=== PATIENT | male | born 1970 | race Caucasian/White ===

== ENCOUNTER 2020-11-26 17:04 | Inpatient (IN) | payer OTHER, SELFPAY ==
--- NOTE | ~2020-11-26 | MR_ITS ---
MR LUMBAR SPINE WITHOUT AND WITH CONTRAST CLINICAL INFORMATION: Chronic pain. COMPARISON: None TECHNIQUE: MRI of the lumbar spine was obtained using routine sequences with and without contrast. Intravenous contrast: Gadavist 10 mL FINDINGS: Postoperative changes following laminectomy and posterior instrumented lumbar interbody fusion at the L4-S1 levels. Straightening of the lumbar lordosis. Vertebral body heights are maintained. There is mild disc volume loss and disc desiccation at the L2-L3 and L3-L4 levels. There is no bone marrow edema. There are no acute fractures. There is no pathologic intrathecal enhancement. No pathologic enhancement along the cauda equina nerve roots. Spinal electrode leads partially imaged. There are parapelvic cysts bilaterally. L1-L2: Disc contour is normal. Mild bilateral facet arthropathy. No central canal stenosis and no foraminal stenosis. L2-L3: There is a diffuse annular disc bulge the superimposed right paracentral disc protrusion that contacts and likely results in mild mass effect on the traversing L3 nerve roots within the subarticular zones bilaterally. There is also a far right lateral disc protrusion that contacts the extraforaminal right L2 nerve root. L3-L4: At the junctional level, there is a diffuse annular disc bulge and there is bilateral facet arthropathy and ligamentum flavum thickening as well as prominent dorsal epidural fat. Findings in concert result in moderate to severe central canal stenosis, severe left subarticular zone stenosis with compression of the traversing left L4 nerve root, and moderate to severe bilateral foraminal stenosis with mass effect on the exiting L3 nerve roots bilaterally. L4-L5: Postoperative changes following laminectomy and posterior instrumented lumbar interbody fusion. Osteophytic ridging results in right subarticular zone stenosis with mass effect on the traversing right L5 nerve root. There is enhancing granulation/scar tissue inseparable from the traversing right L5 nerve root as well. Mild narrowing of the central canal and mild bilateral foraminal encroachment at this level. L5-S1: Postoperative changes following laminectomy and posterior instrumented lumbar interbody fusion. Right left lateral osteophytic ridging resulting in moderate to severe bilateral foraminal stenosis with mass effect on the exiting L5 nerve roots bilaterally. No significant granulation/scar tissue at this level. MR/MR lumbar spine wo/w con IMPRESSION: - At L2-L3, a shallow right paracentral disc protrusion contacts and likely results in mild mass effect on the traversing L3 nerve roots within the subarticular zones bilaterally. There is also a far right lateral disc protrusion that contacts the extraforaminal right L2 nerve root. - At the L3-L4 junctional level, multifactorial degenerative changes result in moderate to severe central canal stenosis, severe left subarticular zone stenosis with compression of the traversing left L4 nerve root, and moderate to severe bilateral foraminal stenosis with mass effect on the exiting L3 nerve roots bilaterally. - At L4-L5, there are postoperative changes following laminectomy and posterior instrumented lumbar interbody fusion. Osteophytic ridging results in right subarticular zone stenosis with mass effect on the traversing right L5 nerve root. There is enhancing granulation/scar tissue inseparable from the traversing right L5 nerve root as well. - At L5-S1, there are postoperative changes following and posterior instrumented lumbar interbody fusion. Osteophytic ridging and facet arthropathy result in moderate to severe bilateral foraminal stenosis at L5-S1 with mass effect on the exiting L5 nerve roots bilaterally.
[2020-11-26 17:12] VITALS: BP 160/110; PULSE 127; RESP 18; TEMP 36.8; O2SAT 95; BMI 27.1
--- NOTE | 2020-11-26 17:42 | ED_ITS ---
HPI - Psych General Chief Complaint: Psychiatric Symptoms Stated Complaint: SI Time Seen by Provider: 11/26/20 17:41 Source: patient Limitations: no limitations History of Present Illness HPI Narrative: 50 y/o male with history of bipolar disorder, depression, HTN, suicide attempts in the past, chronic back pain s/p 5 back surgeries at [facility] who presents to the ED with suicidal ideation for the last 2 weeks. He lives at home with his who works as a nurse at [employer]. He reports compliance with all of his medications as well as his appointments with his Psychiatrist and Therapist at [facility] in [place]. He states about 2 weeks ago he started feeling off. He was getting headaches and feeling like the world was spinning out of control around him. He has been crying uncontrollably when this happens and thinking that he no longer wants to live. He does not have a specific plan. He states his cousin who he was very close with committed suicide 1 year ago with a gunshot to the head and he has been having a hard time coping. He admits to difficulty being at home on disability and looking at the same 4 serrano all day everyday. The pandemic has worsened his depression significantly. He denies illicit drug use (aside from occasional medical marijuana). Only occasional ETOH. He met with his therapist today who recommended to come in for evaluation given his symptoms. His 2 suicide attempts were several years ago, overdose of his medications and he required ICU level of care. MD complaint: suicidal ideation and feels depressed Onset (ago): week(s) (2) Duration: constant History of same: Yes Relieving factors: none Exacerbating factors: none Associated psychiatric symptoms: depression and suicidal ideation Associated symptoms: headache and insomnia Treatments prior to arrival: none If self harm: admits thoughts of self harm Related Data Home Medications Medication Instructions Recorded Confirmed amlodipine 1 tab PO DAILY 11/26/20 11/26/20 diclofenac sodium 1 tab PO BID 11/26/20 11/26/20 divalproex 3 tab PO DAILY 11/26/20 11/26/20 gabapentin 1 tab PO TID 11/26/20 11/26/20 lorazepam 1 tab PO BID 11/26/20 11/26/20 quetiapine 2 tab PO BEDTIME 11/26/20 11/26/20 Allergies Allergy/AdvReac Type Severity Reaction Status Date / Time meperidine [From DEMEROL] Allergy Mild UNKNOWN Verified 11/26/20 17:12 Review of Systems Review of Systems: Constitutional: No Fever, No Chills ENT/Mouth: No sore throat, No Rhinorrhea, No Swallowing Difficulty Cardiovascular: No Chest Pain, No SOB Respiratory: No Cough, No Sputum Gastrointestinal: No Nausea, No Vomiting, No Diarrhea, No abdominal Pain Genitourinary: No Dysuria, No Urinary Frequency, No Hematuria Musculoskeletal: + joint pain, + Myalgias Skin: No Skin Lesions, No rash Neuro: No Weakness, No Numbness, No Dizziness, + Headache Psych: + Anxiety/Panic, + Depression, +SI, No AH/VH Heme/Lymph: No Bruising, No Lymphadenopathy Endocrine: No Polyuria, No Polydipsia PMFSH Past Medical History Attestation statement: The following information was validated with the patient. Social History Social History Advance Directives: No Advance Directives Information Provided: Yes Physical Exam Vital Signs: Vital Signs: Last Vital Signs Temp 97.8 F 11/26/20 20:41 Pulse 92 11/26/20 20:41 Resp 18 11/26/20 17:12 BP 155/106 H 11/26/20 20:41 Pulse Ox 95 11/26/20 20:41 Body Mass Index 27.1 Const: General: cooperative, healthy appearing, comfortable and no acute distress Orientation/consciousness: patient oriented x3 HENMT: Head: Yes normal to inspection Ears: hearing grossly normal bilaterally General nose exam: Normal external nose present Face and sinus: Yes normal facial exam Mouth: lip normal Teeth and gingiva: dentition normal Eyes: General: appearance normal, both eyes and all related structures Neck: Neck: Yes normal visual inspection Chest: Chest palpation & inspection: normal inspection of the chest Resp: Effort & Inspection: normal respiratory effort and able to speak in complete sentences Auscultation: clear to auscultation bilaterally Cardio: Rate: tachycardic Rhythm: regular rhythm Heart sounds: S1 normal heart sound present and S2 normal heart sound present GI: Inspection: Yes normal to inspection Palpation (GI): Soft to palpation and nontender Auscultation: normal bowel sounds Skin: General skin exam: no rashes or lesions noted Neuro: General: patient oriented x3 Cognition (Neuro): normal cognition Extrem: General: Yes normal to inspection Psych: Appearance: grossly normal and well kempt Mental Status: mental status grossly normal Speech and movement: Normal speech and movement present Affect: Sad affect present Attitude: cooperative Thought process: Normal thought process present Thought content: Suicidality present Insight: Good insight present (Psych) Judgement: Good judgement present (Psych) Course Course Course Narrative: 50 y/o male with history of bipolar depression and suicide attempts in the past presenting with SI, worsening over 2 weeks. He feels as though his medications are no longer working for him. He is tahcycardic and hypertensive on arrival. He admits to be anxious and nervous. He denies substance abuse or any withdrawal symptoms. Will check basic lab, Utox, ETOH level and have CARE team see him. EKG ordered as well given tachycardia. Reevaluation(s) Reevaluation #1: Labs are unremarkable. HR improved to the 90s. CARE team to see. Physician observation started at 8:40pm. Patient placed in physician observation because patient is awaiting [facility] evaluation for the possible need of inpatient psych admission. At the time observation was started patient's vital signs were stable. Patient is alert and oriented. Neuro exam is non-focal. CV: RRR and lungs are clear. Will continue to monitor. [facility] - Psych Medical Records Attestation: I reviewed the patient's medical records. Lab Data Attestation: I reviewed the patient's lab results. Result diagrams: 11/26/20 18:53 11/26/20 18:53 Labs: Lab Results 11/26/20 11/26/20 11/26/20 Range/Units 18:30 18:53 18:53 WBC 6.5 (4.8-10.8) X10*3/uL RBC 5.97 H (4.60-5.80) X10*6/uL Hgb 17.4 (14.0-18.0) g/dl Hct 50.7 (42-52) % MCV 84.9 (80-98) fL MCH 29.1 (27.0-33.0) pg MCHC 34.3 (31.0-36.0) g/dl RDW 13.3 (11.0-16.0) % Plt Count 274 (160-400) X10*3/uL MPV 9.3 L (9.4-12.4) fL Immature Gran % (Auto) 0.2 (0.0-0.4) % Neut % (Auto) 72.2 (45-73) % Lymph % (Auto) 18.4 L (20-40) % Nicholas % (Auto) 8.0 (2-11) % Eos % (Auto) 0.6 (0-4) % Baso % (Auto) 0.6 (0-2) % Lymph # (Auto) 1.2 (1.2-4.9) X10*3/uL Nicholas # (Auto) 0.5 (0.1-1.2) X10*3/uL Eos # (Auto) 0.0 (0.0-0.4) X10*3/uL Baso # (Auto) 0.0 (0.0-0.2) X10*3/uL Abs Immat Gran (auto) 0.01 (0.00-0.03) X10*3/uL Absolute Neuts (auto) 4.7 (2.0-8.3) X10*3/uL Absolute Nucleated RBC 0.000 (0.0-0.012) X10*3/uL Nucleated RBC % (auto) 0.0 (0.0-0.2) /100WBC Sodium 138 (135-145) mmol/L Potassium 4.0 (3.3-5.1) mmol/L Chloride 102 (96-108) mmol/L Carbon Dioxide 25 (22-29) mmol/L Anion Gap 15 (12-20) BUN 23 H (9-16) mg/dL Creatinine 0.95 (0.5-1.4) mg/dL Estim Creat Clear Calc 103.2 Estimated GFR > 60 Random Glucose 127 H (60-115) mg/dL Calcium 9.8 (8.4-10.2) mg/dL Magnesium 2.1 (1.6-2.6) mg/dL Total Bilirubin 0.7 (0.0-1.0) mg/dL Direct Bilirubin 0.2 (0.0-0.5) mg/dL AST 22 (5-37) U/L ALT 32 (0-40) U/L Alkaline Phosphatase 73 (39-117) U/L Total Protein 7.6 (6.5-8.0) g/dL Albumin 4.7 (3.5-5.0) g/dL Urine Color Urine Appearance Urine pH (5.0-8.0) Ur Specific [place] (1.005-1.025) Urine Protein (NEG-TRACE) MG/DL Urine Glucose (UA) (NEG) MG/DL Urine Ketones (NEG) MG/DL Urine Blood (NEG) Urine Nitrite (NEG) Ur Leukocyte Esterase (NEG) Urine RBC (0) /HPF Urine WBC (0-4) /HPF Ur Squamous Epith Cells /LPF Amorphous Sediment /LPF Urine Bacteria /LPF Urine Mucus /LPF Urine Opiates Screen Not Detected (Not Detect) Ur Barbiturates Screen Not Detected (Not Detect) Valproic Acid 68.1 (50.0-100.0) mcg/mL Ur Phencyclidine Scrn Not Detected (Not Detect) Ur Amphetamines Screen Not Detected (Not Detect) U Benzodiazepines Scrn Not Detected (Not Detect) Urine Cocaine Screen Not Detected (Not Detect) U Marijuana (THC) Screen POSITIVE H (Not Detect) Ethyl Alcohol mg/dL COVID-19 (LILLIAN) (Negative) COVID-19 Clin Com 11/26/20 11/26/20 11/26/20 Range/Units 18:53 18:53 19:48 WBC (4.8-10.8) X10*3/uL RBC (4.60-5.80) X10*6/uL Hgb (14.0-18.0) g/dl Hct (42-52) % MCV (80-98) fL MCH (27.0-33.0) pg MCHC (31.0-36.0) g/dl RDW (11.0-16.0) % Plt Count (160-400) X10*3/uL MPV (9.4-12.4) fL Immature Gran % (Auto) (0.0-0.4) % Neut % (Auto) (45-73) % Lymph % (Auto) (20-40) % Nicholas % (Auto) (2-11) % Eos % (Auto) (0-4) % Baso % (Auto) (0-2) % Lymph # (Auto) (1.2-4.9) X10*3/uL Nicholas # (Auto) (0.1-1.2) X10*3/uL Eos # (Auto) (0.0-0.4) X10*3/uL Baso # (Auto) (0.0-0.2) X10*3/uL Abs Immat Gran (auto) (0.00-0.03) X10*3/uL Absolute Neuts (auto) (2.0-8.3) X10*3/uL Absolute Nucleated RBC (0.0-0.012) X10*3/uL Nucleated RBC % (auto) (0.0-0.2) /100WBC Sodium (135-145) mmol/L Potassium (3.3-5.1) mmol/L Chloride (96-108) mmol/L Carbon Dioxide (22-29) mmol/L Anion Gap (12-20) BUN (9-16) mg/dL Creatinine (0.5-1.4) mg/dL Estim Creat Clear Calc Estimated GFR Random Glucose (60-115) mg/dL Calcium (8.4-10.2) mg/dL Magnesium (1.6-2.6) mg/dL Total Bilirubin (0.0-1.0) mg/dL Direct Bilirubin (0.0-0.5) mg/dL AST (5-37) U/L ALT (0-40) U/L Alkaline Phosphatase (39-117) U/L Total Protein (6.5-8.0) g/dL Albumin (3.5-5.0) g/dL Urine Color YELLOW Urine Appearance CLEAR Urine pH 6.0 (5.0-8.0) Ur Specific [place] >= 1.030 H (1.005-1.025) Urine Protein 2+ H (NEG-TRACE) MG/DL Urine Glucose (UA) NEG (NEG) MG/DL Urine Ketones 40 (NEG) MG/DL Urine Blood 2+ H (NEG) Urine Nitrite NEG (NEG) Ur Leukocyte Esterase NEG (NEG) Urine RBC 10-14 H (0) /HPF Urine WBC 0 (0-4) /HPF Ur Squamous Epith Cells TRACE /LPF Amorphous Sediment TRACE /LPF Urine Bacteria TRACE /LPF Urine Mucus 4+ /LPF Urine Opiates Screen (Not Detect) Ur Barbiturates Screen (Not Detect) Valproic Acid (50.0-100.0) mcg/mL Ur Phencyclidine Scrn (Not Detect) Ur Amphetamines Screen (Not Detect) U Benzodiazepines Scrn (Not Detect) Urine Cocaine Screen (Not Detect) U Marijuana (THC) Screen (Not Detect) Ethyl Alcohol < 10 mg/dL COVID-19 (LILLIAN) Negative (Negative) COVID-19 Clin Com See Note ECG Data Attestation: I personally reviewed and interpreted this ECG as follows: ECG interpretation date: 11/26/20 ECG interpretation time: 21:19 Prior ECG tracings: available for review Interpretation: normal sinus rhythm, HR 82 bpm, normal TX interval, no ST segment elevations or depressions. Discharge Plan Discharge Clinical Impression: Suicidal ideation Patient Disposition: Admitted As Inpatient Prescriptions: No Action quetiapine 100 mg tablet 2 tab PO BEDTIME RF: 0 gabapentin 800 mg tablet 1 tab PO TID RF: 0 amlodipine 10 mg tablet 1 tab PO DAILY RF: 0 divalproex 500 mg tablet extended release 24 hr 3 tab PO DAILY RF: 0 diclofenac sodium 75 mg tablet,delayed release (DR/EC) 1 tab PO BID RF: 0 lorazepam 1 mg tablet 1 tab PO BID RF: 0
--- NOTE | 2020-11-26 18:33 | ECG_ITS ---
Test Reason : MED CLEARANCE Blood Pressure : / mmHG Vent. Rate : 082 BPM Atrial Rate : 082 BPM P-R Int : 146 ms QRS Dur : 104 ms QT Int : 374 ms P-R-T Axes : 059 013 041 degrees QTc Int : 436 ms Normal sinus rhythm Normal ECG When compared with ECG of 04-JAN-2020 21:46, No significant change was found Referred By: Alycia Boyd Electronically Signed By:BALDEMAR MELO MD
--- NOTE | 2020-11-26 18:54 | HE.PHANOTE ---
Pharmacy has completed the medication reconciliation and there were no significant medication issues requiring provider attention. Maria T Camara PharmD
[2020-11-26 19:01] LABS: MANUAL DIFF FLAG NO
[2020-11-26 19:09] LABS: Basophils Percent Auto 0.6 % (0-2); Eosinophils Percent Auto 0.6 % (0-4); Hematocrit 50.7 % (42-52); Hemoglobin 17.4 g/dl (14.0-18.0); Imm Gran Abs Auto 0.01 X10*3/uL (0.00-0.03); Imm Gran Pct Auto 0.2 % (0.0-0.4); Lymphocytes Absolute Auto 1.2 X10*3/uL (1.2-4.9); Lymphocytes Percent Auto 18.4 % (20-40); Mean Corpuscular HGB Conc 34.3 g/dl (31.0-36.0); Mean Corpuscular Hemoglobin 29.1 pg (27.0-33.0); Mean Corpuscular Volume 84.9 fL (80-98); Mean Platelet Volume 9.3 fL (9.4-12.4); Monocytes Absolute Auto 0.5 X10*3/uL (0.1-1.2); Neutrophils Absolute Auto 4.7 X10*3/uL (2.0-8.3); Neutrophils Percent Auto 72.2 % (45-73); Platelet Count 274 X10*3/uL (160-400); Red Blood Count 5.97 X10*6/uL (4.60-5.80); Red Cell Distribution Width 13.3 % (11.0-16.0); White Blood Count 6.5 X10*3/uL (4.8-10.8)
[2020-11-26 19:24] LABS: Ethanol < 10 mg/dL
[2020-11-26 19:28] LABS: Alanine Aminotransferase 32 U/L (0-40); Albumin Level 4.7 g/dL (3.5-5.0); Alkaline Phosphatase 73 U/L (39-117); Anion Gap 15 (12-20); Aspartate Amino Transferase 22 U/L (5-37); Bilirubin Direct 0.2 mg/dL (0.0-0.5); Bilirubin Total 0.7 mg/dL (0.0-1.0); Blood Urea Nitrogen 23 mg/dL (9-16); Calcium 9.8 mg/dL (8.4-10.2); Carbon Dioxide 25 mmol/L (22-29); Chloride 102 mmol/L (96-108); Creatinine Clr Calc Pharmacy 103.2; Estimated Glomerular Filt Rate > 60; Glucose Random 127 mg/dL (60-115); Magnesium 2.1 mg/dL (1.6-2.6); Sodium 138 mmol/L (135-145); Total Protein 7.6 g/dL (6.5-8.0)
[2020-11-26 19:29] LABS: Amphetamine Screen Urine Not Detected (Not Detect); Barbiturates, Urine Not Detected (Not Detect); Benzodiazepines Screen Urine Not Detected (Not Detect); Cannabinoid Screen Urine POSITIVE (Not Detect); Cocaine Screen Urine Not Detected (Not Detect); Opiate Screen Urine Not Detected (Not Detect); Phencyclidine Screen Urine Not Detected (Not Detect)
[2020-11-26 19:36] LABS: Glucose Urine UA NEG (NEG); Leukocyte Esterase Urine NEG (NEG); Nitrite Urine NEG (NEG); Specific Gravity - Urine >= 1.030 (1.005-1.025); Urine Blood 2+ (NEG); Urine Ketones 40 MG/DL (NEG); Urine Protein 2+ MG/DL (NEG-TRACE)
[2020-11-26 19:37] LABS: Appearance Urine CLEAR; Color Urine YELLOW
[2020-11-26 19:47] LABS: Amorphous Sediment Urine TRACE /LPF; Bacteria Urine TRACE /LPF; Mucus Urine 4+ /LPF; Squamous Epithelial Cell Urine TRACE /LPF; WBC Urine 0 /HPF (0-4)
[2020-11-26 20:08] LABS: COVID-19 Test Negative (Negative); IDNOW Serial# 08D9AD1C
[2020-11-26 20:41] VITALS: BP 155/106; PULSE 92; TEMP 36.6; O2SAT 95
[2020-11-26 21:13] LABS: Valproate 68.1 mcg/mL (50.0-100.0)
[2020-11-26] MEDS: Diclofenac Sodium Delayed Rel 75 MG TABLET.DR PO (21:37)
[2020-11-26] MEDS: Gabapentin 400 MG CAPSULE 800 MG PO (21:38)
[2020-11-26] MEDS: LORazepam 1 MG TABLET PO (23:19)
[2020-11-26] MEDS: QUEtiapine Fumarate 200 MG TABLET PO (23:20)
--- NOTE | 2020-11-26 23:24 | PC.NURSE ---
Patient compliant with night time meds, calm and quiet, behavior pleasant, signed CV, RN to RN with M3 completed, patient admitted to M3, will continue to monitor.
[2020-11-26 23:40] VITALS: BP 150/104; PULSE 75; RESP 18; TEMP 36.2; O2SAT 97
--- NOTE | 2020-11-27 00:38 | MHC.CARE ---
Pt evaluated by CARE team. Consulted with RAFAEL Boyd and psyhiatrist Dr. Nicholson re: plan of care. Disposition is for inpt psych. Admitted on CV legal status. Auth form faxed with [employer] to [facility].
--- NOTE | 2020-11-27 02:24 | PC.ADMIT ---
Abhinav arrived on M# from the [facility] ed at 2325. Patient signed a CV. Patient covid negative, Abhinav reports chronic lower back pain from an accident at work in 2019. Patient reports the pain is chronic and never goes away. patient having trouble adjusting to the pain, no longer working, and feeling useless. Patient reports elevated anxiety and depression. patient reports taking Depakote for years and just over the past 2 weeks he has noticed his mood sliding up and down. Patient reports periods of sadness and crying and then will suddenly stop. Patient currently reports no SI/HI but is worried about the future. Patient contracts for safety on the unit. Patient was pleasant and cooperative with nursing process.
[2020-11-27 06:00] VITALS: BP 116/72; PULSE 96; RESP 18; TEMP 36.9; O2SAT 100
[2020-11-27 09:11] VITALS: BP 116/72; PULSE 100
[2020-11-27] MEDS: Gabapentin 400 MG CAPSULE 800 MG PO (09:11)
[2020-11-27] MEDS: amLODIPine Besylate 10 MG TABLET PO (09:11)
[2020-11-27] MEDS: Divalproex Sodium ER 500 MG TAB.ER.24H 1500 MG PO (09:11)
[2020-11-27] MEDS: LORazepam 1 MG TABLET PO ×2 (09:12→21:19)
[2020-11-27] MEDS: Diclofenac Sodium Delayed Rel 75 MG TABLET.DR PO ×2 (09:12→21:19)
[2020-11-27] MEDS: Divalproex Sodium ER 500 MG TAB.ER.24H PO (14:09)
--- NOTE | 2020-11-27 14:26 | P.HPPS_ITS ---
HPI Chief Complaint: Mood lability and SI Sources of Information: patient interviewed, chart reviewed and crisis/core team assessment reviewed HPI Subjective Notes: Conditional Voluntary Narrative: pt with several work-related injuries to the back with multiple fail ed surgical fixes and associated chronic pain, plus bipolar I disorder, presents with unstable mood, dysphoria, and SI. he has been on disability since last year for his back injuries and stable on his current medications regimen for the past decade or more. he has recently begun to experience rapid mood swings, bouts of crying, insomnia, somatic disturbances, and negative mood states. he has been feeling off for several months but the past two weeks have been severe. he has a h/o suicide attempts and decided to seek help before it got to that point. Past Psychiatric History: h/o bipolar disorder. h/o 3 prior psych hosps. h/o 2 suicide attempt both by overdose (one lithium) more than 10 years ago. has been in outpt [place] since then. Medical Evaluation Reviewed: Yes PMF Narrative: HTN lower back injury s/p numerous surgeries without pain relief Family History: cousin completed suicide by gunshot 1.5 yrs ago. bipolar di sorder. mother has parkinson's Dz. Social History: disabled from back pain due to work injury. just last year, had a prior marriage. has a son in his late teens and a daughter in her early 20's from prior marriage. Substance History: utox cannabis POS. uses for pain. edibles. Trauma History: none noted Diagnostics Vital Signs (24Hr): Vital Signs - 24 hr 11/26/20 17:12 11/26/20 20:41 11/26/20 23:40 Temperature 98.2 F 97.8 F 97.2 F Pulse Rate 127 H 92 75 Respiratory Rate 18 18 Blood Pressure 160/110 H 155/106 H 150/104 H Pulse Oximetry 95 95 97 11/27/20 06:00 11/27/20 09:11 Temperature 98.5 F Pulse Rate 96 100 Respiratory Rate 18 Blood Pressure 116/72 116/72 Pulse Oximetry 100 Body Mass Index 27.1 Labs Results: 11/26/20 18:53 11/26/20 18:53 Labs: Laboratory Results - last 48 hr 11/26/20 11/26/20 11/26/20 18:30 18:53 18:53 WBC 6.5 RBC 5.97 H Hgb 17.4 Hct 50.7 MCV 84.9 MCH 29.1 MCHC 34.3 RDW 13.3 Plt Count 274 MPV 9.3 L Immature Gran % (Auto) 0.2 Neut % (Auto) 72.2 Lymph % (Auto) 18.4 L [place] % (Auto) 8.0 Eos % (Auto) 0.6 Baso % (Auto) 0.6 Lymph # (Auto) 1.2 [place] # (Auto) 0.5 Eos # (Auto) 0.0 Baso # (Auto) 0.0 Abs Immat Gran (auto) 0.01 Absolute Neuts (auto) 4.7 Absolute Nucleated RBC 0.000 Nucleated RBC % (auto) 0.0 Sodium 138 Potassium 4.0 Chloride 102 Carbon Dioxide 25 Anion Gap 15 BUN 23 H Creatinine 0.95 Estim Creat Clear Calc 103.2 Estimated GFR > 60 Random Glucose 127 H Calcium 9.8 Magnesium 2.1 Total Bilirubin 0.7 Direct Bilirubin 0.2 AST 22 ALT 32 Alkaline Phosphatase 73 Total Protein 7.6 Albumin 4.7 Urine Color Urine Appearance Urine pH Ur Specific [place] Urine Protein Urine Glucose (UA) Urine Ketones Urine Blood Urine Nitrite Ur Leukocyte Esterase Urine RBC Urine WBC Ur Squamous Epith Cells Amorphous Sediment Urine Bacteria Urine Mucus Urine Opiates Screen Not Detected Ur Barbiturates Screen Not Detected Valproic Acid 68.1 Ur Phencyclidine Scrn Not Detected Ur Amphetamines Screen Not Detected U Benzodiazepines Scrn Not Detected Urine Cocaine Screen Not Detected U Marijuana (THC) Screen POSITIVE H Ethyl Alcohol COVID-19 ([facility]ILLIAN) COVID-19 Clin Com 11/26/20 11/26/20 11/26/20 18:53 18:53 19:48 WBC RBC Hgb Hct MCV MCH MCHC RDW Plt Count MPV Immature Gran % (Auto) Neut % (Auto) Lymph % (Auto) [place] % (Auto) Eos % (Auto) Baso % (Auto) Lymph # (Auto) [place] # (Auto) Eos # (Auto) Baso # (Auto) Abs Immat Gran (auto) Absolute Neuts (auto) Absolute Nucleated RBC Nucleated RBC % (auto) Sodium Potassium Chloride Carbon Dioxide Anion Gap BUN Creatinine Estim Creat Clear Calc Estimated GFR Random Glucose Calcium Magnesium Total Bilirubin Direct Bilirubin AST ALT Alkaline Phosphatase Total Protein Albumin Urine Color YELLOW Urine Appearance CLEAR Urine pH 6.0 Ur Specific [place] >= 1.030 H Urine Protein 2+ H Urine Glucose (UA) NEG Urine Ketones 40 Urine Blood 2+ H Urine Nitrite NEG Ur Leukocyte Esterase NEG Urine RBC 10-14 H Urine WBC 0 Ur Squamous Epith Cells TRACE Amorphous Sediment TRACE Urine Bacteria TRACE Urine Mucus 4+ Urine Opiates Screen Ur Barbiturates Screen Valproic Acid Ur Phencyclidine Scrn Ur Amphetamines Screen U Benzodiazepines Scrn Urine Cocaine Screen U Marijuana (THC) Screen Ethyl Alcohol < 10 COVID-19 ([facility]ILLIAN) Negative COVID-19 Clin Com See Note Meds/Allergies Meds Home Medications Acetaminophen (Acetaminophen 325 Mg Tablet) 650 mg PO Q6H PRN PRN Reason: Headache/Pain Mild Scale (1-3) Al Hydroxide/Mg Hydroxide (Magnesium Hydrox/Alum Hydrox 30 Ml Oral.Susp) 30 ml PO Q6H PRN PRN Reason: Heartburn/Nausea Amlodipine Besylate (Amlodipine Besylate 10 Mg Tablet) 10 mg PO DAILY [facility]; Protocol Last Admin: 11/27/20 09:11 Dose: 10 mg Documented by: Diclofenac Sodium (Diclofenac Sodium Delayed Rel 75 Mg Tablet.) 75 mg PO BID [facility] Last Admin: 11/27/20 09:12 Dose: 75 mg Documented by: Divalproex Sodium (Divalproex Sodium Er 500 Mg Tab.Er.24h) 2,000 mg PO DAILY [facility] Gabapentin (Gabapentin 600 Mg Tablet) 600 mg PO TID [facility] Last Admin: 11/27/20 15:55 Dose: 600 mg Documented by: Gabapentin (Gabapentin 400 Mg Capsule) 400 mg PO TID [facility] Last Admin: 11/27/20 15:55 Dose: 400 mg Documented by: Hydroxyzine HCl (Hydroxyzine Hcl 25 Mg Tablet) 25 mg PO QID PRN PRN Reason: Anxiety Lorazepam (Lorazepam 1 Mg Tablet) 1 mg PO BID [facility] Last Admin: 11/27/20 09:12 Dose: 1 mg Documented by: Magnesium Hydroxide (Milk Of Magnesia 30 Ml Oral.Susp) 30 ml PO DAILY PRN PRN Reason: Constipation Quetiapine Fumarate (Quetiapine Fumarate 200 Mg Tablet) 200 mg PO BEDTIME [facility] Last Admin: 11/26/20 23:20 Dose: 200 mg Documented by: Trazodone HCl (Trazodone Hcl 50 Mg Tablet) 50 mg PO BEDTIME PRN PRN Reason: Insomnia Allergies Allergies Allergy/AdvReac Type Severity Reaction Status Date / Time meperidine [From DEMEROL] Allergy Mild UNKNOWN Verified 11/26/20 17:12 Mental Status Exam Mental Status Exam Narrative: appropriately dressed and groomed. sleeve tattoos. no PMA/PMR. cooperative. speech nml in rate, amount, loudness, tone, latency. thoughts linear and logical without evidence of delusions or paranoia. affect constricted, normo-intense, non-labile. mood .good. denies SI since yesterday. denies HI/AVH. Assessment & Plan Assessment & Plan (1) Bipolar 1 disorder, mixed, mild: Status: Acute Code(s): F31.61 - Bipolar disorder, current episode mixed, mild Assessment and Plan: increase VPA from 1500 mg daily to 2000 mg daily to address mood lability. increase gabapentin from 800 TID to 1000 TID to address neuropathic pain. T/C adding an antidepressant such as wellbutrin; SNRI such as effexor or cymbalta for depression and chronic pain; lithium for mood stabilization and antidepressant properties (of note, lithium is one of the medications pt overdosed on about 20 years ago). Reason for continued inpatient stay Substantial Risk for: harm to self
[2020-11-27] MEDS: Gabapentin 400 MG CAPSULE PO ×2 (15:55→21:19)
[2020-11-27] MEDS: Gabapentin 600 MG TABLET PO ×2 (15:55→21:19)
[2020-11-27] MEDS: Nicotine Polacrilex 2 MG GUM BUCCAL (17:33)
[2020-11-27 18:00] VITALS: BP 138/78; PULSE 93; RESP 18; TEMP 36.9; O2SAT 96
[2020-11-27] MEDS: QUEtiapine Fumarate 200 MG TABLET PO (21:19)
[2020-11-28 06:00] VITALS: BP 113/76; PULSE 79; RESP 16; TEMP 36.9; O2SAT 96
[2020-11-28] MEDS: Gabapentin 400 MG CAPSULE PO ×3 (08:46→20:58)
[2020-11-28] MEDS: Diclofenac Sodium Delayed Rel 75 MG TABLET.DR PO ×2 (08:46→20:56)
[2020-11-28] MEDS: Gabapentin 600 MG TABLET PO ×3 (08:46→20:58)
[2020-11-28 08:47] VITALS: BP 113/76; PULSE 79
[2020-11-28] MEDS: amLODIPine Besylate 10 MG TABLET PO (08:47)
[2020-11-28] MEDS: LORazepam 1 MG TABLET PO ×2 (08:47→20:55)
[2020-11-28] MEDS: Divalproex Sodium ER 500 MG TAB.ER.24H 2000 MG PO (09:33)
[2020-11-28] MEDS: Nicotine Polacrilex 2 MG GUM BUCCAL ×4 (09:37→19:22)
[2020-11-28] MEDS: Lidocaine 4 % Patch ADH..PATCH 1 PATCH TRANSDERMA (16:16)
--- NOTE | 2020-11-28 17:27 | P.PNPSI_ITS ---
Subjective Subjective Date of Service: 11/28/20 Reason For Visit: Mood lability and SI Interim History: pt found resting in bed, easily rousable. reports no substantial change in Sx from yesterday. a few bouts of nearly crying, but nothing out of control and no somatic symptoms associated with severe mood disturbance. agreeable to continue with current medications. reports his will be bringing in his TENS unit. amenable to considering tegretol over VPA for neuropathic pain treatment properties in addition to mood stabilization. also T/C TCA or SNRI. informed pt MD will look into neuro or pain consult. also willing to try lidocaine patch to lower back. no other complaints or requests. Mental Status Exam Mental Status Exam Narrative: appropriately dressed and groomed. sleeve tattoos. no PMA/PMR. cooperative. speech nml in rate, amount, loudness, tone, latency. thoughts linear and logical without evidence of delusions or paranoia. affect constricted, normo-intense, non-labile. denies SI. no HI/AVH expressed. Diagnostics Vital Signs (24Hr): Vital Signs - 24 hr 11/27/20 18:00 11/28/20 06:00 11/28/20 08:47 Temperature 98.4 F 98.5 F Pulse Rate 93 79 79 Respiratory Rate 18 16 Blood Pressure 138/78 113/76 113/76 Pulse Oximetry 96 96 Body Mass Index 27.1 Labs Results: 11/26/20 18:53 11/26/20 18:53 Labs: Laboratory Results - last 48 hr 11/26/20 11/26/20 11/26/20 18:30 18:53 18:53 WBC 6.5 RBC 5.97 H Hgb 17.4 Hct 50.7 MCV 84.9 MCH 29.1 MCHC 34.3 RDW 13.3 Plt Count 274 MPV 9.3 L Immature Gran % (Auto) 0.2 Neut % (Auto) 72.2 Lymph % (Auto) 18.4 L [place] % (Auto) 8.0 Eos % (Auto) 0.6 Baso % (Auto) 0.6 Lymph # (Auto) 1.2 Posey # (Auto) 0.5 Eos # (Auto) 0.0 Baso # (Auto) 0.0 Abs Immat Gran (auto) 0.01 Absolute Neuts (auto) 4.7 Absolute Nucleated RBC 0.000 Nucleated RBC % (auto) 0.0 Sodium 138 Potassium 4.0 Chloride 102 Carbon Dioxide 25 Anion Gap 15 BUN 23 H Creatinine 0.95 Estim Creat Clear Calc 103.2 Estimated GFR > 60 Random Glucose 127 H Calcium 9.8 Magnesium 2.1 Total Bilirubin 0.7 Direct Bilirubin 0.2 AST 22 ALT 32 Alkaline Phosphatase 73 Total Protein 7.6 Albumin 4.7 Urine Color Urine Appearance Urine pH Ur Specific [place] Urine Protein Urine Glucose (UA) Urine Ketones Urine Blood Urine Nitrite Ur Leukocyte Esterase Urine RBC Urine WBC Ur Squamous Epith Cells Amorphous Sediment Urine Bacteria Urine Mucus Urine Opiates Screen Not Detected Ur Barbiturates Screen Not Detected Valproic Acid 68.1 Ur Phencyclidine Scrn Not Detected Ur Amphetamines Screen Not Detected U Benzodiazepines Scrn Not Detected Urine Cocaine Screen Not Detected U Marijuana (THC) Screen POSITIVE H Ethyl Alcohol COVID-19 ([facility]ILLIAN) COVID-[employer] 11/26/20 11/26/20 11/26/20 18:53 18:53 19:48 WBC RBC Hgb Hct MCV MCH MCHC RDW Plt Count MPV Immature Gran % (Auto) Neut % (Auto) Lymph % (Auto) Posey % (Auto) Eos % (Auto) Baso % (Auto) Lymph # (Auto) Posey # (Auto) Eos # (Auto) Baso # (Auto) Abs Immat Gran (auto) Absolute Neuts (auto) Absolute Nucleated RBC Nucleated RBC % (auto) Sodium Potassium Chloride Carbon Dioxide Anion Gap BUN Creatinine Estim Creat Clear Calc Estimated GFR Random Glucose Calcium Magnesium Total Bilirubin Direct Bilirubin AST ALT Alkaline Phosphatase Total Protein Albumin Urine Color YELLOW Urine Appearance CLEAR Urine pH 6.0 Ur Specific [place] >= 1.030 H Urine Protein 2+ H Urine Glucose (UA) NEG Urine Ketones 40 Urine Blood 2+ H Urine Nitrite NEG Ur Leukocyte Esterase NEG Urine RBC 10-14 H Urine WBC 0 Ur Squamous Epith Cells TRACE Amorphous Sediment TRACE Urine Bacteria TRACE Urine Mucus 4+ Urine Opiates Screen Ur Barbiturates Screen Valproic Acid Ur Phencyclidine Scrn Ur Amphetamines Screen U Benzodiazepines Scrn Urine Cocaine Screen U Marijuana (THC) Screen Ethyl Alcohol < 10 COVID-19 ([facility]ILLIAN) Negative COVID-19 [employer] See Note Medications Medications Current Medications Generic Name Dose Route Start Last Admin Trade Name Freq PRN Reason Stop Dose Admin Acetaminophen 650 mg 11/26/20 23:25 Acetaminophen 325 Mg Tablet PO Q6H PRN Headache/Pain Mild Scale (1-3) Al Hydroxide/Mg Hydroxide 30 ml 11/26/20 23:25 Magnesium Hydrox/Alum Hydrox 30 Ml Oral.Susp PO Q6H PRN Heartburn/Nausea Amlodipine Besylate 10 mg 11/27/20 09:00 11/28/20 08:47 Amlodipine Besylate 10 Mg Tablet PO 10 mg DAILY TIMUR Administration Protocol Diclofenac Sodium 75 mg 11/26/20 21:00 11/28/20 08:46 Diclofenac Sodium Delayed Rel 75 Mg Tablet.Dr PO 75 mg BID TIMUR Administration Divalproex Sodium 2,000 mg 11/28/20 09:00 11/28/20 09:33 Divalproex Sodium Er 500 Mg Tab.Er.24h PO 2,000 mg DAILY TIMUR Administration Gabapentin 600 mg 11/27/20 15:00 11/28/20 14:39 Gabapentin 600 Mg Tablet PO 600 mg TID TIMUR Administration Gabapentin 400 mg 11/27/20 15:00 11/28/20 14:39 Gabapentin 400 Mg Capsule PO 400 mg TID TIMUR Administration Hydroxyzine HCl 25 mg 11/26/20 23:25 Hydroxyzine Hcl 25 Mg Tablet PO QID PRN Anxiety Lidocaine 1 patch 11/28/20 14:22 Lidocaine 4 % Patch Adh..Patch TRANSDERMA DAILY PRN pain Protocol Lorazepam 1 mg 11/26/20 21:00 11/28/20 08:47 Lorazepam 1 Mg Tablet PO 1 mg BID TIMUR Administration Magnesium Hydroxide 30 ml 11/26/20 23:25 Milk Of Magnesia 30 Ml Oral.Susp PO DAILY PRN Constipation Nicotine Polacrilex 2 mg 11/27/20 17:15 11/28/20 15:42 Nicotine Polacrilex 2 Mg Gum BUCCAL 2 mg Q2H PRN Administration Nicotine Cravings Quetiapine Fumarate 200 mg 11/26/20 21:00 11/27/20 21:19 Quetiapine Fumarate 200 Mg Tablet PO 200 mg BEDTIME TIMUR Administration Trazodone HCl 50 mg 11/26/20 23:25 Trazodone Hcl 50 Mg Tablet PO BEDTIME PRN Insomnia Allergies Allergies Allergy/AdvReac Type Severity Reaction Status Date / Time meperidine [From DEMEROL] Allergy Mild UNKNOWN Verified 11/26/20 17:12 Assessment & Plan Assessment & Plan (1) Bipolar 1 disorder, mixed, mild: Status: Acute Code(s): F31.61 - Bipolar disorder, current episode mixed, mild Assessment and Plan: increased VPA from 1500 mg daily to 2000 mg daily as of 11/27 to address mood lability. T/C swapping for tegretol as it may help pain as well as mood. increased gabapentin from 800 TID to 1000 TID as of 11/28 to address neuropathic pain. T/C adding an antidepressant such as wellbutrin; SNRI such as effexor or cymbalta for depression and chronic pain; lithium for mood stabilization and antidepressant properties (of note, lithium is one of the medications pt overdosed on about 20 years ago). case d/w pain service. they recommended MRI of the lumbar spine to R/O any obvious areas for intervention and suggested referral for outpt Tx with their clinic once psychiatrically stable. labs ordered for wednesday morning. Greater than 50% of the session was spent on counseling and/or coordination of care Reason for contiued inpatient stay Substantial Risk for: harm to self
[2020-11-28 17:37] VITALS: BP 127/84; PULSE 91; RESP 16; TEMP 36.9; O2SAT 94
[2020-11-28] MEDS: QUEtiapine Fumarate 200 MG TABLET PO (20:57)
[2020-11-28] MEDS: Milk of Magnesia 30 ML ORAL.SUSP PO (21:14)
[2020-11-29 06:00] VITALS: BP 139/90; PULSE 85; TEMP 36.7; O2SAT 98
[2020-11-29] MEDS: Divalproex Sodium ER 500 MG TAB.ER.24H 2000 MG PO (08:58)
[2020-11-29 08:59] VITALS: BP 139/90; PULSE 85
[2020-11-29] MEDS: LORazepam 1 MG TABLET PO ×2 (08:59→22:05)
[2020-11-29] MEDS: Gabapentin 600 MG TABLET PO (08:59)
[2020-11-29] MEDS: Gabapentin 400 MG CAPSULE PO (08:59)
[2020-11-29] MEDS: Diclofenac Sodium Delayed Rel 75 MG TABLET.DR PO ×2 (08:59→22:06)
[2020-11-29] MEDS: amLODIPine Besylate 10 MG TABLET PO (08:59)
--- NOTE | 2020-11-29 11:51 | HO.PSYCHPN ---
Subjective Subjective Date of Service: 11/29/20 Reason For Visit: Mood lability and SI Interim History: pt found sleeping in bed, easily rousable. reports no substantial change in Sx from yesterday. a few bouts of nearly crying, but nothing out of control and no somatic symptoms associated with severe mood disturbance. reports he awakened today with 8/10 pain; not improved at all. agreeable to increase gabapentin to max dose today, 1200 mg TID, to see if it makes a difference. discussed consult to pain mgmt service and their recommendation for MRI to see if there is anything they can intervene on during the brief stay. pt reports his implants are titanium and his implanted device has an MRI mode, so he can get the MRI. agreeable to continue the new VPA dose through wednesday for levels and to assess clinical efficacy. Mental Status Exam Mental Status Exam Narrative: appropriately dressed and groomed. sleeve tattoos. no PMA/PMR. cooperative. speech nml in rate, amount, loudness, tone, latency. thoughts linear and logical without evidence of delusions or paranoia. affect constricted, normo-intense, non-labile. no SI/HI/AVH expressed. Diagnostics Vital Signs (24Hr): Vital Signs - 24 hr 11/28/20 17:37 11/29/20 06:00 11/29/20 08:59 Temperature 98.5 F 98.0 F Pulse Rate 91 85 85 Respiratory Rate 16 Blood Pressure 127/84 139/90 H 139/90 H Pulse Oximetry 94 98 Body Mass Index 27.1 Labs Results: 11/26/20 18:53 11/26/20 18:53 Medications Medications Current Medications Generic Name Dose Route Start Last Admin Trade Name Freq PRN Reason Stop Dose Admin Acetaminophen 650 mg 11/26/20 23:25 Acetaminophen 325 Mg Tablet PO Q6H PRN Headache/Pain Mild Scale (1-3) Al Hydroxide/Mg Hydroxide 30 ml 11/26/20 23:25 Magnesium Hydrox/Alum Hydrox 30 Ml Oral.Susp PO Q6H PRN Heartburn/Nausea Amlodipine Besylate 10 mg 11/27/20 09:00 11/29/20 08:59 Amlodipine Besylate 10 Mg Tablet PO 10 mg DAILY [facility] Administration Protocol Diclofenac Sodium 75 mg 11/26/20 21:00 11/29/20 08:59 Diclofenac Sodium Delayed Rel 75 Mg Tablet. PO 75 mg BID TIMUR Administration Divalproex Sodium 2,000 mg 11/28/20 09:00 11/29/20 08:58 Divalproex Sodium Er 500 Mg Tab.Er.24h PO 2,000 mg DAILY TIMUR Administration Gabapentin 1,200 mg 11/29/20 15:00 Gabapentin 600 Mg Tablet PO TID TIMUR Hydroxyzine HCl 25 mg 11/26/20 23:25 Hydroxyzine Hcl 25 Mg Tablet PO QID PRN Anxiety Lidocaine 1 patch 11/28/20 14:22 Lidocaine 4 % Patch Adh..Patch TRANSDERMA DAILY PRN pain Protocol Lorazepam 1 mg 11/26/20 21:00 11/29/20 08:59 Lorazepam 1 Mg Tablet PO 1 mg BID TIMUR Administration Magnesium Hydroxide 30 ml 11/26/20 23:25 11/28/20 21:14 Milk Of Magnesia 30 Ml Oral.Susp PO 30 ml DAILY PRN Administration Constipation Nicotine Polacrilex 2 mg 11/27/20 17:15 11/28/20 19:22 Nicotine Polacrilex 2 Mg Gum BUCCAL 2 mg Q2H PRN Administration Nicotine Cravings Quetiapine Fumarate 200 mg 11/26/20 21:00 11/28/20 20:57 Quetiapine Fumarate 200 Mg Tablet PO 200 mg BEDTIME TIMUR Administration Trazodone HCl 50 mg 11/26/20 23:25 Trazodone Hcl 50 Mg Tablet PO BEDTIME PRN Insomnia Allergies Allergies Allergy/AdvReac Type Severity Reaction Status Date / Time meperidine [From DEMEROL] Allergy Mild UNKNOWN Verified 11/26/20 17:12 Assessment & Plan Assessment & Plan (1) Bipolar 1 disorder, mixed, mild: Status: Acute Code(s): F31.61 - Bipolar disorder, current episode mixed, mild Assessment and Plan: increased VPA from 1500 mg daily to 2000 mg daily as of 11/27 to address mood lability. T/C swapping for tegretol as it may help pain as well as mood. increased gabapentin from 800 TID to 1000 TID as of 11/28, on to 1200 TID as of 11/30, to address neuropathic pain. T/C adding an antidepressant such as wellbutrin; SNRI such as effexor or cymbalta for depression and chronic pain; lithium for mood stabilization and antidepressant properties (of note, lithium is one of the medications pt overdosed on about 20 years ago). case d/w pain service. they recommended MRI of the lumbar spine to R/O any obvious areas for intervention and suggested referral for outpt Tx with their clinic once psychiatrically stable. labs ordered for wednesday. Greater than 50% of the session was spent on counseling and/or coordination of care Reason for contiued inpatient stay Substantial Risk for: harm to self and inability to function
[2020-11-29] MEDS: Nicotine Polacrilex 2 MG GUM BUCCAL ×2 (13:20→19:14)
[2020-11-29] MEDS: Gabapentin 600 MG TABLET 1200 MG PO ×2 (14:50→22:06)
--- NOTE | 2020-11-29 14:58 | PC.NURSE ---
PT HAS A MRI ORDERED AND THIS IS BEING REVIEWED BY MRI MD FOR APPROPRIATENESS. MRI ARE ALSO LOOKING INTO PT'S IMPLANTED TENS SAFETY WITH MRI. PT AWARE. PT HAS ALSO BEEN CLEARED TO HAVE THE TENS REMOTE T THE BEDSIDE BY HIS TREATING PSYCHIATRIST. PT CHARGED DEVICE IN THE COMMON AREA ACROSS FROM THE NURSES STATION.
[2020-11-29 18:09] VITALS: BP 127/95; PULSE 85; RESP 18; TEMP 36.5; O2SAT 96
[2020-11-29 20:54] VITALS: BP 154/97; PULSE 87; TEMP 36.7; O2SAT 97
[2020-11-29] MEDS: QUEtiapine Fumarate 200 MG TABLET PO (22:06)
[2020-11-30 09:55] VITALS: BP 133/87; PULSE 76; RESP 18; TEMP 36.7; O2SAT 96
[2020-11-30 09:56] VITALS: BP 133/87; PULSE 76
[2020-11-30] MEDS: LORazepam 1 MG TABLET PO ×2 (09:56→21:57)
[2020-11-30] MEDS: Divalproex Sodium ER 500 MG TAB.ER.24H 2000 MG PO (09:56)
[2020-11-30] MEDS: Diclofenac Sodium Delayed Rel 75 MG TABLET.DR PO ×2 (09:56→22:01)
[2020-11-30] MEDS: amLODIPine Besylate 10 MG TABLET PO (09:56)
[2020-11-30] MEDS: Gabapentin 600 MG TABLET 1200 MG PO ×3 (09:57→21:57)
[2020-11-30] MEDS: Nicotine Polacrilex 2 MG GUM BUCCAL ×2 (14:27→18:26)
[2020-11-30 20:37] VITALS: BP 178/112; PULSE 101; TEMP 36.5; O2SAT 98
[2020-11-30] MEDS: QUEtiapine Fumarate 50 MG TABLET 250 MG PO (21:57)
[2020-11-30] MEDS: Acetaminophen 325 MG TABLET 650 MG PO (21:58)
[2020-11-30 22:06] VITALS: BP 137/96; PULSE 107
[2020-12-01] MEDS: traZODone HCL 100 MG TABLET PO ×2 (01:28→20:34)
--- NOTE | 2020-12-01 05:06 | HO.PSYCHPN ---
Subjective Subjective Date of Service: 12/02/20 Reason For Visit: Mood lability and SI Interim History: Pt reports feeling tired, overwhelmed with pain and poor sleep. He reports depressed mood but denies suicidal thoughts today. He has been visible in the unit, social with select peers. Reports he did not take trazodone initially but later took it with good effect. Taking medications as prescribed. No side effects noted or reported. Review of Systems Review of Systems Constitutional: No Fever, No Chills ENT/Mouth: No sore throat, No Rhinorrhea, No Swallowing Difficulty Cardiovascular: No Chest Pain, No SOB Respiratory: No Cough, No Sputum Gastrointestinal: No Nausea, No Vomiting, No Diarrhea, No abdominal Pain Genitourinary: No Dysuria, No Urinary Frequency, No Hematuria Musculoskeletal: + joint pain, + Myalgias Skin: No Skin Lesions, No rash Neuro: No Weakness, No Numbness, No Dizziness, + Headache Psych: + Anxiety/Panic, + Depression, +SI, No AH/VH Heme/Lymph: No Bruising, No Lymphadenopathy Endocrine: No Polyuria, No Polydipsia Mental Status Exam Mental Status Exam Narrative: appropriately dressed and groomed. sleeve tattoos. no PMA/PMR. cooperative. speech nml in rate, amount, tone, latency, spontaneous. thoughts linear and logical without evidence of delusions or paranoia. affect constricted, normo-intense, non-labile. no SI/HI/AVH expressed. Diagnostics Vital Signs (24Hr): Vital Signs - 24 hr 12/01/20 09:41 12/01/20 09:42 12/01/20 18:00 Temperature 98.2 F 98.5 F Pulse Rate 85 85 85 Respiratory Rate 18 20 Blood Pressure 134/87 134/87 130/88 Pulse Oximetry 95 99 Body Mass Index 27.1 Labs Results: 11/26/20 18:53 11/26/20 18:53 Imaging Radiology Impressions: ITS Impressions Lumbar Spine MRI 11/29/20 17:30 IMPRESSION: - At L2-L3, a shallow right paracentral disc protrusion contacts and likely results in mild mass effect on the traversing L3 nerve roots within the subarticular zones bilaterally. There is also a far right lateral disc protrusion that contacts the extraforaminal right L2 nerve root. - At the L3-L4 junctional level, multifactorial degenerative changes result in moderate to severe central canal stenosis, severe left subarticular zone stenosis with compression of the traversing left L4 nerve root, and moderate to severe bilateral foraminal stenosis with mass effect on the exiting L3 nerve roots bilaterally. - At L4-L5, there are postoperative changes following laminectomy and posterior instrumented lumbar interbody fusion. Osteophytic ridging results in right subarticular zone stenosis with mass effect on the traversing right L5 nerve root. There is enhancing granulation/scar tissue inseparable from the traversing right L5 nerve root as well. - At L5-S1, there are postoperative changes following and posterior instrumented lumbar interbody fusion. Osteophytic ridging and facet arthropathy result in moderate to severe bilateral foraminal stenosis at L5-S1 with mass effect on the exiting L5 nerve roots bilaterally. Medications Medications Current Medications Generic Name Dose Route Start Last Admin Trade Name Freq PRN Reason Stop Dose Admin Acetaminophen 650 mg 11/26/20 23:25 11/30/20 21:58 Acetaminophen 325 Mg Tablet PO 650 mg Q6H PRN Administration Headache/Pain Mild Scale (1-3) Al Hydroxide/Mg Hydroxide 30 ml 11/26/20 23:25 Magnesium Hydrox/Alum Hydrox 30 Ml Oral.Susp PO Q6H PRN Heartburn/Nausea Amlodipine Besylate 10 mg 11/27/20 09:00 12/01/20 09:42 Amlodipine Besylate 10 Mg Tablet PO 10 mg DAILY [facility]UR Administration Protocol Diclofenac Sodium 75 mg 11/26/20 21:00 12/01/20 20:34 Diclofenac Sodium Delayed Rel 75 Mg Tablet.Dr PO 75 mg BID TIMUR Administration Divalproex Sodium 2,000 mg 11/28/20 09:00 12/01/20 09:42 Divalproex Sodium Er 500 Mg Tab.Er.24h PO 2,000 mg DAILY TIMUR Administration Gabapentin 1,200 mg 11/29/20 15:00 12/01/20 20:34 Gabapentin 600 Mg Tablet PO 1,200 mg TID TIMUR Administration Hydroxyzine HCl 25 mg 11/26/20 23:25 12/02/20 02:04 Hydroxyzine Hcl 25 Mg Tablet PO 25 mg QID PRN Administration Anxiety Lidocaine 1 patch 11/28/20 14:22 Lidocaine 4 % Patch Adh..Patch TRANSDERMA DAILY PRN pain Protocol Magnesium Hydroxide 30 ml 11/26/20 23:25 11/28/20 21:14 Milk Of Magnesia 30 Ml Oral.Susp PO 30 ml DAILY PRN Administration Constipation Nicotine Polacrilex 2 mg 11/27/20 17:15 12/01/20 13:24 Nicotine Polacrilex 2 Mg Gum BUCCAL 2 mg Q2H PRN Administration Nicotine Cravings Quetiapine Fumarate 250 mg 11/30/20 21:00 12/01/20 20:34 Quetiapine Fumarate 50 Mg Tablet PO 250 mg BEDTIME TIMUR Administration Trazodone HCl 50 mg 11/26/20 23:25 12/02/20 02:04 Trazodone Hcl 50 Mg Tablet PO 50 mg BEDTIME PRN Administration Insomnia Trazodone HCl 100 mg 11/30/20 21:00 12/01/20 20:34 Trazodone Hcl 100 Mg Tablet PO 100 mg BEDTIME TIMUR Administration Allergies Allergies Allergy/AdvReac Type Severity Reaction Status Date / Time meperidine [From DEMEROL] Allergy Mild UNKNOWN Verified 11/26/20 17:12 Assessment & Plan Assessment & Plan (1) Bipolar 1 disorder, mixed, mild: Status: Acute Code(s): F31.61 - Bipolar disorder, current episode mixed, mild Assessment and Plan: increased VPA from 1500 mg daily to 2000 mg daily as of 11/27 to address mood lability. T/C swapping for tegretol as it may help pain as well as mood. increased gabapentin from 800 TID to 1000 TID as of 11/28, on to 1200 TID as of 11/30, to address neuropathic pain. T/C adding an antidepressant such as wellbutrin; SNRI such as effexor or cymbalta for depression and chronic pain; lithium for mood stabilization and antidepressant properties (of note, lithium is one of the medications pt overdosed on about 20 years ago). case d/w pain service. they recommended MRI of the lumbar spine to R/O any obvious areas for intervention and suggested referral for outpt Tx with their clinic once psychiatrically stable. labs ordered for wednesday. 11/30- increase trazodone to 100mg po qhs, seroquel to 250mg po qhs for sleep. Greater than 50% of the session was spent on counseling and/or coordination of care Reason for contiued inpatient stay Substantial Risk for: inability to function
[2020-12-01 09:41] VITALS: BP 134/87; PULSE 85; RESP 18; TEMP 36.8; O2SAT 95
[2020-12-01 09:42] VITALS: BP 134/87; PULSE 85
[2020-12-01] MEDS: Gabapentin 600 MG TABLET 1200 MG PO ×3 (09:42→20:34)
[2020-12-01] MEDS: Divalproex Sodium ER 500 MG TAB.ER.24H 2000 MG PO (09:42)
[2020-12-01] MEDS: Diclofenac Sodium Delayed Rel 75 MG TABLET.DR PO ×2 (09:42→20:34)
[2020-12-01] MEDS: amLODIPine Besylate 10 MG TABLET PO (09:42)
[2020-12-01] MEDS: LORazepam 1 MG TABLET PO ×2 (09:44→20:34)
[2020-12-01] MEDS: Nicotine Polacrilex 2 MG GUM BUCCAL ×2 (10:39→13:24)
[2020-12-01 18:00] VITALS: BP 130/88; PULSE 85; RESP 20; TEMP 36.9; O2SAT 99
[2020-12-01] MEDS: QUEtiapine Fumarate 50 MG TABLET 250 MG PO (20:34)
[2020-12-02] MEDS: traZODone HCL 50 MG TABLET PO (02:04)
[2020-12-02] MEDS: hydrOXYzine HCL 25 MG TABLET PO (02:04)
[2020-12-02 06:00] VITALS: BP 137/77; PULSE 80; RESP 18; TEMP 36.6; O2SAT 94
[2020-12-02 08:17] LABS: MANUAL DIFF FLAG NO
[2020-12-02 08:20] LABS: Basophils Absolute Auto 0.1 X10*3/uL (0.0-0.2); Eosinophils Absolute Auto 0.3 X10*3/uL (0.0-0.4); Hematocrit 46.3 % (42-52); Hemoglobin 15.5 g/dl (14.0-18.0); Imm Gran Abs Auto 0.01 X10*3/uL (0.00-0.03); Imm Gran Pct Auto 0.2 % (0.0-0.4); Lymphocytes Absolute Auto 1.7 X10*3/uL (1.2-4.9); Lymphocytes Percent Auto 35.5 % (20-40); Mean Corpuscular HGB Conc 33.5 g/dl (31.0-36.0); Mean Corpuscular Hemoglobin 28.9 pg (27.0-33.0); Mean Corpuscular Volume 86.4 fL (80-98); Mean Platelet Volume 9.2 fL (9.4-12.4); Monocytes Absolute Auto 0.6 X10*3/uL (0.1-1.2); Monocytes Percent Auto 11.7 % (2-11); Neutrophils Absolute Auto 2.2 X10*3/uL (2.0-8.3); Neutrophils Percent Auto 45.6 % (45-73); Platelet Count 224 X10*3/uL (160-400); Red Blood Count 5.36 X10*6/uL (4.60-5.80); Red Cell Distribution Width 13.6 % (11.0-16.0); White Blood Count 4.9 X10*3/uL (4.8-10.8)
[2020-12-02] MEDS: Divalproex Sodium ER 500 MG TAB.ER.24H 2000 MG PO (08:23)
[2020-12-02] MEDS: Gabapentin 600 MG TABLET 1200 MG PO ×3 (08:24→21:14)
[2020-12-02] MEDS: Diclofenac Sodium Delayed Rel 75 MG TABLET.DR PO ×2 (08:24→21:13)
[2020-12-02] MEDS: amLODIPine Besylate 10 MG TABLET PO (08:25)
[2020-12-02 08:46] LABS: Alanine Aminotransferase 35 U/L (0-40); Albumin Level 3.9 g/dL (3.5-5.0); Alkaline Phosphatase 54 U/L (39-117); Anion Gap 13 (12-20); Aspartate Amino Transferase 17 U/L (5-37); Bilirubin Direct 0.2 mg/dL (0.0-0.5); Bilirubin Total 0.3 mg/dL (0.0-1.0); Blood Urea Nitrogen 17 mg/dL (9-16); Carbon Dioxide 25 mmol/L (22-29); Chloride 109 mmol/L (96-108); Creatinine Clr Calc Pharmacy 112.7; Estimated Glomerular Filt Rate > 60; Glucose Random 96 mg/dL (60-115); Potassium 4.5 mmol/L (3.3-5.1); Sodium 142 mmol/L (135-145); Total Protein 6.2 g/dL (6.5-8.0)
[2020-12-02 08:47] LABS: Valproate 28.1 mcg/mL (50.0-100.0)
[2020-12-02] MEDS: Nicotine Polacrilex 2 MG GUM BUCCAL ×2 (10:50→16:00)
--- NOTE | 2020-12-02 10:54 | ED_ITS ---
HPI - Back Pain/Injury General Source: patient Limitations: no limitations History of Present Illness HPI Narrative: Patient is a 50 year old male presenting with complaints of back pain. He had a back injury in 2019 following which he underwent several rounds of steroid injections which were not helpful. He then underwent a L4 through S1 laminectomy and fusion with Dr. Maguire at [facility]. This was followed by developing post-laminectomy pain syndrome. He then underwent a spinal cord stimulation trial which was relatively helpful prior to going to implant. It is unclear if he received a paddle or percutaneous lead. Initially the SCS system was helpful in relieving his pain but then it started to decrease in efficacy. He then also started to experience electrical shocks especially when he was changing positions or coughing/sneezing. Patient states that he is in a lot of pain 30/11 and even struggles to sleep due to the intensity of the pain. He was admitted to the hospital for suicidal ideation and is currently under psychiatric treatment. He reports frequent crying episodes. Overall his condition is associated with his inability to carry on with his life as usual and he is concerned about the effect of his disability on his . However he states that his crying episodes are independent of his severe pain flares. MD elicited complaint: back pain and back injury Pertinent past history: prior back pain and back surgery Onset (ago): year(s) Timing: constant Severity: severe Pain scale (0-10): 8 Similar Symptoms Previously: Yes Quality: burning, stabbing, aching, tingling and spasming Location: lumbar spine Radiation: groin, left upper leg, right upper leg, left leg below the knee and right leg below the knee Exacerbating factors: movement, walking, eating and coughing/sneezing Relieving factors: medication and supine Context: while lifting and turning/twisting Associated symptoms: difficulty walking Treatments prior to arrival: other medications (High dose gabapentin) and other (Status post spinal cord stimulation implant) Work related injury: No Related Data Home Medications Medication Instructions Recorded Confirmed amlodipine 1 tab PO DAILY 11/26/20 11/26/20 diclofenac sodium 1 tab PO BID 11/26/20 11/26/20 divalproex 3 tab PO DAILY 11/26/20 11/26/20 gabapentin 1 tab PO TID 11/26/20 11/26/20 lorazepam 1 tab PO BID 11/26/20 11/26/20 quetiapine 2 tab PO BEDTIME 11/26/20 11/26/20 Allergies Allergy/AdvReac Type Severity Reaction Status Date / Time meperidine [From DEMEROL] Allergy Mild UNKNOWN Verified 11/26/20 17:12 Review of Systems Psychiatric: Psychiatric: Reports as per HPI, Reports depression and Reports suicidal ideation [facility] Past Medical History Medical History (Updated 12/02/20 @ 12:00 by Miguel Valencia MD) Lumbar post-laminectomy syndrome Surgical History (Updated 12/02/20 @ 12:00 by Miguel Valencia MD) Status post insertion of spinal cord stimulator Status post laminectomy with spinal fusion Social History Social History Household Members: Spouse Household Members Other:: Housing: House Do you presently have visiting nurse or other home services: No Patient Tobacco Use Status: Never used Tobacco Smoked in Last 30 Days: No e-Cigarette/Vaping Use: Never Used Patient Interested in Nicotine Replacement: No Patient Given Instructions on How to Stop Smoking: No Second Hand Smoke Exposure: No Use of substances other than those prescribed or required for medical reasons: Yes Substance Use Type: Marijuana Substance Use Frequency: Daily Last Used Substance: Just Prior to Admission Currently Displaying Signs/Symptoms of Drug Intoxication Withdrawal: No Other Past Substance Use Problem:: none Any prior treatment program specific to substance use: No Have you been hit, kicked, punched, or otherwise hurt by someone within the past year? If so, by whom?: No Do you feel safe in your current relationship?: No Is there a partner from a previous relationship who is making you feel unsafe now?: No Are you made to feel afraid or neglected: No Spiritual Healthcare Practices: none [facility] Practices: none Cultural Healthcare Practices: none Advance Directives: No Advance Directives Information Provided: Yes Do you have thoughts of harming others: None Do you have a plan to hurt others: No Plan Recently lost weight without trying: No How much weight loss: Not applicable Eating poorly because of decreased appetite: No Nutrition screen score: 0 Nutrition Risks: No Nutritional Risk Poor oral hygiene: No service: No Sexual orientation: Straight/Heterosexual Physical Exam Vital Signs: Vital Signs: Last Vital Signs Temp 97.9 F 12/02/20 06:00 Pulse 80 12/02/20 06:00 Resp 18 12/02/20 06:00 BP 137/77 12/02/20 06:00 Pulse Ox 94 12/02/20 06:00 Body Mass Index 27.1 On exam today: Appears afebrile. Alert and oriented. Mood and affect appropriate. Follows and participates in conversation appropriately. Respiratory effort is unlabored. Able to transition from sit to stand unassisted. Ambulates with bilaterally normal heel strike and toe off with the help of a cane. Able to stand and walk on toes and heels. One midline and two paraspinal well-healed incisions for lumbar laminectomy and fusion. Midline thoracic well-healed scar and a left flank well-healed scar for IPG insertion site. Assessment and plan: 50-year-old male with a history of lumbar laminectomy and fusion with post laminectomy pain syndrome and failure of spinal cord stimulation in providing relief following placement of paddle leads in January 2020. MRI is notable for moderate to severe spinal stenosis at L3-4, L4-5 levels. His pain is currently being managed with high-dose gabapentin. He is also taking Depakote and Seroquel. For immediate relief, we discussed a trial of a caudal epidural steroid injection. He is amenable to trying this. We will try to add him on to our schedule on Wednesday. For longer-term relief, I feel he would benefit from explant of the current paddle leads followed by retrial with a different system. I recommended that following discharge from hospital he follow-up with Dr. Maguire and discuss explanting his current paddle leads. I also informed the [employer] manufacturer's representative of this recommendation. Following the explant, I will consider a trial of a high-frequency system such as Nevro in the outpatient setting. He is on board with this plan. MDM - Back Pain/Injury Lab Data Result diagrams: 12/02/20 08:05 12/02/20 08:05 Labs: Lab Results 11/26/20 11/26/20 11/26/20 Range/Units 18:30 18:53 18:53 WBC 6.5 (4.8-10.8) X10*3/uL RBC 5.97 H (4.60-5.80) X10*6/uL Hgb 17.4 (14.0-18.0) g/dl Hct 50.7 (42-52) % MCV 84.9 (80-98) fL MCH 29.1 (27.0-33.0) pg MCHC 34.3 (31.0-36.0) g/dl RDW 13.3 (11.0-16.0) % Plt Count 274 (160-400) X10*3/uL MPV 9.3 L (9.4-12.4) fL Immature Gran % (Auto) 0.2 (0.0-0.4) % Neut % (Auto) 72.2 (45-73) % Lymph % (Auto) 18.4 L (20-40) % [place] % (Auto) 8.0 (2-11) % Eos % (Auto) 0.6 (0-4) % Baso % (Auto) 0.6 (0-2) % Lymph # (Auto) 1.2 (1.2-4.9) X10*3/uL [place] # (Auto) 0.5 (0.1-1.2) X10*3/uL Eos # (Auto) 0.0 (0.0-0.4) X10*3/uL Baso # (Auto) 0.0 (0.0-0.2) X10*3/uL Abs Immat Gran (auto) 0.01 (0.00-0.03) X10*3/uL Absolute Neuts (auto) 4.7 (2.0-8.3) X10*3/uL Absolute Nucleated RBC 0.000 (0.0-0.012) X10*3/uL Nucleated RBC % (auto) 0.0 (0.0-0.2) /100WBC Sodium 138 (135-145) mmol/L Potassium 4.0 (3.3-5.1) mmol/L Chloride 102 (96-108) mmol/L Carbon Dioxide 25 (22-29) mmol/L Anion Gap 15 (12-20) BUN 23 H (9-16) mg/dL Creatinine 0.95 (0.5-1.4) mg/dL Estim Creat Clear Calc 103.2 Estimated GFR > 60 Random Glucose 127 H (60-115) mg/dL Calcium 9.8 (8.4-10.2) mg/dL Magnesium 2.1 (1.6-2.6) mg/dL Total Bilirubin 0.7 (0.0-1.0) mg/dL Direct Bilirubin 0.2 (0.0-0.5) mg/dL AST 22 (5-37) U/L ALT 32 (0-40) U/L Alkaline Phosphatase 73 (39-117) U/L Total Protein 7.6 (6.5-8.0) g/dL Albumin 4.7 (3.5-5.0) g/dL Urine Color Urine Appearance Urine pH (5.0-8.0) Ur Specific [place] (1.005-1.025) Urine Protein (NEG-TRACE) MG/DL Urine Glucose (UA) (NEG) MG/DL Urine Ketones (NEG) MG/DL Urine Blood (NEG) Urine Nitrite (NEG) Ur Leukocyte Esterase (NEG) Urine RBC (0) /HPF Urine WBC (0-4) /HPF Ur Squamous Epith Cells /LPF Amorphous Sediment /LPF Urine Bacteria /LPF Urine Mucus /LPF Urine Opiates Screen Not Detected (Not Detect) Ur Barbiturates Screen Not Detected (Not Detect) Valproic Acid 68.1 (50.0-100.0) mcg/mL Ur Phencyclidine Scrn Not Detected (Not Detect) Ur Amphetamines Screen Not Detected (Not Detect) U Benzodiazepines Scrn Not Detected (Not Detect) Urine Cocaine Screen Not Detected (Not Detect) U Marijuana (THC) Screen POSITIVE H (Not Detect) Ethyl Alcohol mg/dL COVID-19 ([facility]ILLIAN) (Negative) COVID-19 Clin Com 11/26/20 11/26/20 11/26/20 Range/Units 18:53 18:53 19:48 WBC (4.8-10.8) X10*3/uL RBC (4.60-5.80) X10*6/uL Hgb (14.0-18.0) g/dl Hct (42-52) % MCV (80-98) fL MCH (27.0-33.0) pg MCHC (31.0-36.0) g/dl RDW (11.0-16.0) % Plt Count (160-400) X10*3/uL MPV (9.4-12.4) fL Immature Gran % (Auto) (0.0-0.4) % Neut % (Auto) (45-73) % Lymph % (Auto) (20-40) % [place] % (Auto) (2-11) % Eos % (Auto) (0-4) % Baso % (Auto) (0-2) % Lymph # (Auto) (1.2-4.9) X10*3/uL [place] # (Auto) (0.1-1.2) X10*3/uL Eos # (Auto) (0.0-0.4) X10*3/uL Baso # (Auto) (0.0-0.2) X10*3/uL Abs Immat Gran (auto) (0.00-0.03) X10*3/uL Absolute Neuts (auto) (2.0-8.3) X10*3/uL Absolute Nucleated RBC (0.0-0.012) X10*3/uL Nucleated RBC % (auto) (0.0-0.2) /100WBC Sodium (135-145) mmol/L Potassium (3.3-5.1) mmol/L Chloride (96-108) mmol/L Carbon Dioxide (22-29) mmol/L Anion Gap (12-20) BUN (9-16) mg/dL Creatinine (0.5-1.4) mg/dL Estim Creat Clear Calc Estimated GFR Random Glucose (60-115) mg/dL Calcium (8.4-10.2) mg/dL Magnesium (1.6-2.6) mg/dL Total Bilirubin (0.0-1.0) mg/dL Direct Bilirubin (0.0-0.5) mg/dL AST (5-37) U/L ALT (0-40) U/L Alkaline Phosphatase (39-117) U/L Total Protein (6.5-8.0) g/dL Albumin (3.5-5.0) g/dL Urine Color YELLOW Urine Appearance CLEAR Urine pH 6.0 (5.0-8.0) Ur Specific [place] >= 1.030 H (1.005-1.025) Urine Protein 2+ H (NEG-TRACE) MG/DL Urine Glucose (UA) NEG (NEG) MG/DL Urine Ketones 40 (NEG) MG/DL Urine Blood 2+ H (NEG) Urine Nitrite NEG (NEG) Ur Leukocyte Esterase NEG (NEG) Urine RBC 10-14 H (0) /HPF Urine WBC 0 (0-4) /HPF Ur Squamous Epith Cells TRACE /LPF Amorphous Sediment TRACE /LPF Urine Bacteria TRACE /LPF Urine Mucus 4+ /LPF Urine Opiates Screen (Not Detect) Ur Barbiturates Screen (Not Detect) Valproic Acid (50.0-100.0) mcg/mL Ur Phencyclidine Scrn (Not Detect) Ur Amphetamines Screen (Not Detect) U Benzodiazepines Scrn (Not Detect) Urine Cocaine Screen (Not Detect) U Marijuana (THC) Screen (Not Detect) Ethyl Alcohol < 10 mg/dL COVID-19 ([facility]) Negative (Negative) COVID-19 Clin Com See Note Discharge Plan Discharge Clinical Impression: Suicidal ideation Patient Disposition: Admitted As Inpatient Interventions: Admission Worksheet (ED) Last Done: 11/26/20 23:27 Discharge Date/Time: 11/26/20 23:33
--- NOTE | 2020-12-02 14:16 | HO.PSYCHPN ---
Subjective Subjective Date of Service: 12/02/20 Reason For Visit: Mood lability and SI Interim History: Pt reports feeling tired, overwhelmed with pain and poor sleep. He reports depressed mood but denies suicidal thoughts today. labile mood with crying jags continues. that his mood and periods of crying are normal reactions to his medical predicament is discussed, and that there does not appear to be any other symptom of kameron present. the conclusion is that he is not experiencing a mixed manic episode, but rather is depressed due to his pain and genetic predisposition to depression. in that case, changing his depakote dosing would not be expected to be helpful. focusing more on treatments for his mood and pain, and also insomnia, would seem more warranted. MD generates ideas for TCAs as sleep aids (sleep + neuropathic pain), SNRI (cymbalta) for depression/anxiety and neuropathic pain, and lyrica rather than gabapentin. also T/C tegretol instead of VPA. pt is open to the changes and agrees to any and all. will proced with TCA tonight for sleep and pain. Mental Status Exam Mental Status Exam Narrative: appropriately dressed and groomed. sleeve tattoos. no PMA/PMR. cooperative. speech nml in rate, amount, tone, latency, spontaneous. thoughts linear and logical without evidence of delusions or paranoia. affect constricted, normo-intense, non-labile. no SI. no HI/AVH expressed. Diagnostics Vital Signs (24Hr): Vital Signs - 24 hr 12/01/20 18:00 12/02/20 06:00 Temperature 98.5 F 97.9 F Pulse Rate 85 80 Respiratory Rate 20 18 Blood Pressure 130/88 137/77 Pulse Oximetry 99 94 Body Mass Index 27.1 Labs Results: 12/02/20 08:05 12/02/20 08:05 Labs: Laboratory Results - last 48 hr 12/02/20 12/02/20 08:05 08:05 WBC 4.9 RBC 5.36 Hgb 15.5 Hct 46.3 MCV 86.4 MCH 28.9 MCHC 33.5 RDW 13.6 Plt Count 224 MPV 9.2 L Immature Gran % (Auto) 0.2 Neut % (Auto) 45.6 Lymph % (Auto) 35.5 [place] % (Auto) 11.7 H Eos % (Auto) 6.0 H Baso % (Auto) 1.0 Lymph # (Auto) 1.7 [place] # (Auto) 0.6 Eos # (Auto) 0.3 Baso # (Auto) 0.1 Abs Immat Gran (auto) 0.01 Absolute Neuts (auto) 2.2 Absolute Nucleated RBC 0.000 Nucleated RBC % (auto) 0.0 Sodium 142 Potassium 4.5 Chloride 109 H Carbon Dioxide 25 Anion Gap 13 BUN 17 H Creatinine 0.87 Estim Creat Clear Calc 112.7 Estimated GFR > 60 Random Glucose 96 Calcium 9.0 D Total Bilirubin 0.3 Direct Bilirubin 0.2 AST 17 ALT 35 Alkaline Phosphatase 54 D Total Protein 6.2 L Albumin 3.9 Valproic Acid 28.1 L Imaging Radiology Impressions: ITS Impressions Lumbar Spine MRI 11/29/20 17:30 IMPRESSION: - At L2-L3, a shallow right paracentral disc protrusion contacts and likely results in mild mass effect on the traversing L3 nerve roots within the subarticular zones bilaterally. There is also a far right lateral disc protrusion that contacts the extraforaminal right L2 nerve root. - At the L3-L4 junctional level, multifactorial degenerative changes result in moderate to severe central canal stenosis, severe left subarticular zone stenosis with compression of the traversing left L4 nerve root, and moderate to severe bilateral foraminal stenosis with mass effect on the exiting L3 nerve roots bilaterally. - At L4-L5, there are postoperative changes following laminectomy and posterior instrumented lumbar interbody fusion. Osteophytic ridging results in right subarticular zone stenosis with mass effect on the traversing right L5 nerve root. There is enhancing granulation/scar tissue inseparable from the traversing right L5 nerve root as well. - At L5-S1, there are postoperative changes following and posterior instrumented lumbar interbody fusion. Osteophytic ridging and facet arthropathy result in moderate to severe bilateral foraminal stenosis at L5-S1 with mass effect on the exiting L5 nerve roots bilaterally. Medications Medications Current Medications Generic Name Dose Route Start Last Admin Trade Name Freq PRN Reason Stop Dose Admin Acetaminophen 650 mg 11/26/20 23:25 11/30/20 21:58 Acetaminophen 325 Mg Tablet PO 650 mg Q6H PRN Administration Headache/Pain Mild Scale (1-3) Al Hydroxide/Mg Hydroxide 30 ml 11/26/20 23:25 Magnesium Hydrox/Alum Hydrox 30 Ml Oral.Susp PO Q6H PRN Heartburn/Nausea Amitriptyline HCl 25 mg 12/02/20 21:00 Amitriptyline Hcl 25 Mg Tablet PO BEDTIME TIMUR Amlodipine Besylate 10 mg 11/27/20 09:00 12/02/20 08:25 Amlodipine Besylate 10 Mg Tablet PO 10 mg DAILY TIMUR Administration Protocol Diclofenac Sodium 75 mg 11/26/20 21:00 12/02/20 08:24 Diclofenac Sodium Delayed Rel 75 Mg Tablet.Dr PO 75 mg BID TIMUR Administration Divalproex Sodium 2,000 mg 11/28/20 09:00 12/02/20 08:23 Divalproex Sodium Er 500 Mg Tab.Er.24h PO 2,000 mg DAILY TIMUR Administration Gabapentin 1,200 mg 11/29/20 15:00 12/02/20 08:24 Gabapentin 600 Mg Tablet PO 1,200 mg TID TIMUR Administration Hydroxyzine HCl 25 mg 11/26/20 23:25 12/02/20 02:04 Hydroxyzine Hcl 25 Mg Tablet PO 25 mg QID PRN Administration Anxiety Lidocaine 1 patch 11/28/20 14:22 Lidocaine 4 % Patch Adh..Patch TRANSDERMA DAILY PRN pain Protocol Magnesium Hydroxide 30 ml 11/26/20 23:25 11/28/20 21:14 Milk Of Magnesia 30 Ml Oral.Susp PO 30 ml DAILY PRN Administration Constipation Nicotine Polacrilex 2 mg 11/27/20 17:15 12/02/20 10:50 Nicotine Polacrilex 2 Mg Gum BUCCAL 2 mg Q2H PRN Administration Nicotine Cravings Quetiapine Fumarate 250 mg 11/30/20 21:00 12/01/20 20:34 Quetiapine Fumarate 50 Mg Tablet PO 250 mg BEDTIME TIMUR Administration Trazodone HCl 100 mg 11/30/20 21:00 12/01/20 20:34 Trazodone Hcl 100 Mg Tablet PO 100 mg BEDTIME TIMUR Administration Allergies Allergies Allergy/AdvReac Type Severity Reaction Status Date / Time meperidine [From DEMEROL] Allergy Mild UNKNOWN Verified 11/26/20 17:12 Assessment & Plan Assessment & Plan (1) Bipolar 1 disorder, mixed, mild: Status: Acute Code(s): F31.61 - Bipolar disorder, current episode mixed, mild Assessment and Plan: increased VPA from 1500 mg daily to 2000 mg daily as of 11/27 to address mood lability. T/C swapping for tegretol as it may help pain as well as mood. increased gabapentin from 800 TID to 1000 TID as of 11/28, on to 1200 TID as of 11/30, to address neuropathic pain. this has not been effective; considering switch to lyrica. T/C adding SNRI cymbalta for depression and chronic pain. elavil 25 mg QHS added 12/02 for insomnia and chronic pain. titrate as tolerated. lumbar MRI complete and under review by pain service. Greater than 50% of the session was spent on counseling and/or coordination of care Reason for contiued inpatient stay Substantial Risk for: harm to self
[2020-12-02 20:54] VITALS: BP 152/99; PULSE 115; RESP 18; TEMP 36.9; O2SAT 96
[2020-12-02] MEDS: Amitriptyline HCl 25 MG TABLET PO (21:13)
[2020-12-02] MEDS: QUEtiapine Fumarate 50 MG TABLET 250 MG PO (21:14)
[2020-12-02] MEDS: traZODone HCL 100 MG TABLET PO (21:14)
[2020-12-03] MEDS: hydrOXYzine HCL 25 MG TABLET PO ×2 (03:55→22:53)
[2020-12-03 06:00] VITALS: BP 119/80; PULSE 83; RESP 16; TEMP 37.4; O2SAT 96
[2020-12-03 08:55] VITALS: BP 119/80; PULSE 83
[2020-12-03] MEDS: Diclofenac Sodium Delayed Rel 75 MG TABLET.DR PO ×2 (08:55→21:04)
[2020-12-03] MEDS: amLODIPine Besylate 10 MG TABLET PO (08:55)
[2020-12-03] MEDS: Gabapentin 600 MG TABLET 1200 MG PO ×3 (08:55→21:04)
[2020-12-03] MEDS: Divalproex Sodium ER 500 MG TAB.ER.24H 2000 MG PO (09:16)
[2020-12-03] MEDS: Nicotine Polacrilex 2 MG GUM BUCCAL (11:14)
--- NOTE | 2020-12-03 14:03 | P.PNPSI_ITS ---
Subjective Subjective Date of Service: 12/03/20 Reason For Visit: Mood lability and SI Interim History: pt reports no change in mood or pain. may have slept a bit better last night. agreeable to increase elavil again and to start duloxetine. also discussed possibilities of cross taper of VPA onto tegretol and gabapentin onto lyrica; more likely to accomplish those changes outpt if they are indeed pursued. will increase elavil tonight, taper off of trazodone. considering steroid injection tomorrow versus after discharge from the hospital. was up at 0400 thios morning, got a PRN, fell back asleep. per staff, pt continues with 8/10 pain, slight increase in anxiety and depression (but without SI). seen by pain mgmt yesterday. Mental Status Exam Mental Status Exam Narrative: appropriately dressed and groomed. sleeve tattoos. no PMA/PMR. cooperative. speech nml in rate, amount, tone, latency, spontaneous. thoughts linear and logical without evidence of delusions or paranoia. affect constricted, normo-intense, non-labile. no SI/HI/AVH expressed. Diagnostics Vital Signs (24Hr): Vital Signs - 24 hr 12/02/20 20:54 12/03/20 06:00 12/03/20 08:55 Temperature 98.4 F 99.3 F Pulse Rate 115 H 83 83 Respiratory Rate 18 16 Blood Pressure 152/99 H 119/80 119/80 Pulse Oximetry 96 96 Body Mass Index 27.1 Labs Results: 12/02/20 08:05 12/02/20 08:05 Labs: Laboratory Results - last 48 hr 12/02/20 12/02/20 08:05 08:05 WBC 4.9 RBC 5.36 Hgb 15.5 Hct 46.3 MCV 86.4 MCH 28.9 MCHC 33.5 RDW 13.6 Plt Count 224 MPV 9.2 L Immature Gran % (Auto) 0.2 Neut % (Auto) 45.6 Lymph % (Auto) 35.5 [place] % (Auto) 11.7 H Eos % (Auto) 6.0 H Baso % (Auto) 1.0 Lymph # (Auto) 1.7 [place] # (Auto) 0.6 Eos # (Auto) 0.3 Baso # (Auto) 0.1 Abs Immat Gran (auto) 0.01 Absolute Neuts (auto) 2.2 Absolute Nucleated RBC 0.000 Nucleated RBC % (auto) 0.0 Sodium 142 Potassium 4.5 Chloride 109 H Carbon Dioxide 25 Anion Gap 13 BUN 17 H Creatinine 0.87 Estim Creat Clear Calc 112.7 Estimated GFR > 60 Random Glucose 96 Calcium 9.0 D Total Bilirubin 0.3 Direct Bilirubin 0.2 AST 17 ALT 35 Alkaline Phosphatase 54 D Total Protein 6.2 L Albumin 3.9 Valproic Acid 28.1 L Imaging Radiology Impressions: ITS Impressions Lumbar Spine MRI 11/29/20 17:30 IMPRESSION: - At L2-L3, a shallow right paracentral disc protrusion contacts and likely results in mild mass effect on the traversing L3 nerve roots within the subarticular zones bilaterally. There is also a far right lateral disc protrusion that contacts the extraforaminal right L2 nerve root. - At the L3-L4 junctional level, multifactorial degenerative changes result in moderate to severe central canal stenosis, severe left subarticular zone stenosis with compression of the traversing left L4 nerve root, and moderate to severe bilateral foraminal stenosis with mass effect on the exiting L3 nerve roots bilaterally. - At L4-L5, there are postoperative changes following laminectomy and posterior instrumented lumbar interbody fusion. Osteophytic ridging results in right subarticular zone stenosis with mass effect on the traversing right L5 nerve root. There is enhancing granulation/scar tissue inseparable from the traversing right L5 nerve root as well. - At L5-S1, there are postoperative changes following and posterior instrumented lumbar interbody fusion. Osteophytic ridging and facet arthropathy result in moderate to severe bilateral foraminal stenosis at L5-S1 with mass effect on the exiting L5 nerve roots bilaterally. Medications Medications Current Medications Generic Name Dose Route Start Last Admin Trade Name Freq PRN Reason Stop Dose Admin Acetaminophen 650 mg 11/26/20 23:25 11/30/20 21:58 Acetaminophen 325 Mg Tablet PO 650 mg Q6H PRN Administration Headache/Pain Mild Scale (1-3) Al Hydroxide/Mg Hydroxide 30 ml 11/26/20 23:25 Magnesium Hydrox/Alum Hydrox 30 Ml Oral.Susp PO Q6H PRN Heartburn/Nausea Amitriptyline HCl 50 mg 12/03/20 21:00 Amitriptyline Hcl 25 Mg Tablet PO BEDTIME TIMUR Amlodipine Besylate 10 mg 11/27/20 09:00 12/03/20 08:55 Amlodipine Besylate 10 Mg Tablet PO 10 mg DAILY TIMUR Administration Protocol Diclofenac Sodium 75 mg 11/26/20 21:00 12/03/20 08:55 Diclofenac Sodium Delayed Rel 75 Mg Tablet.Dr PO 75 mg BID TIMUR Administration Divalproex Sodium 2,000 mg 11/28/20 09:00 12/03/20 09:16 Divalproex Sodium Er 500 Mg Tab.Er.24h PO 2,000 mg DAILY TIMUR Administration Gabapentin 1,200 mg 11/29/20 15:00 12/03/20 08:55 Gabapentin 600 Mg Tablet PO 1,200 mg TID TIMUR Administration Hydroxyzine HCl 25 mg 11/26/20 23:25 12/03/20 03:55 Hydroxyzine Hcl 25 Mg Tablet PO 25 mg QID PRN Administration Anxiety Lidocaine 1 patch 11/28/20 14:22 Lidocaine 4 % Patch Adh..Patch TRANSDERMA DAILY PRN pain Protocol Magnesium Hydroxide 30 ml 11/26/20 23:25 11/28/20 21:14 Milk Of Magnesia 30 Ml Oral.Susp PO 30 ml DAILY PRN Administration Constipation Nicotine Polacrilex 2 mg 11/27/20 17:15 12/03/20 11:14 Nicotine Polacrilex 2 Mg Gum BUCCAL 2 mg Q2H PRN Administration Nicotine Cravings Quetiapine Fumarate 250 mg 11/30/20 21:00 12/02/20 21:14 Quetiapine Fumarate 50 Mg Tablet PO 250 mg BEDTIME TIMUR Administration Trazodone HCl 50 mg 12/03/20 21:00 Trazodone Hcl 50 Mg Tablet PO 12/04/20 09:00 BEDTIME [facility] Allergies Allergies Allergy/AdvReac Type Severity Reaction Status Date / Time meperidine [From DEMEROL] Allergy Mild UNKNOWN Verified 11/26/20 17:12 Assessment & Plan Assessment & Plan (1) Bipolar 1 disorder, mixed, mild: Status: Acute Code(s): F31.61 - Bipolar disorder, current episode mixed, mild Assessment and Plan: increased VPA from 1500 mg daily to 2000 mg daily as of 11/27 to address mood lability. VPA level curiously low at 28 on 2000 mg VPA daily when it had been 68 on 1500 mg 6 days earlier. T/C swapping for tegretol as it may help pain as well as mood. increased gabapentin from 800 TID to 1000 TID as of 11/28, on to 1200 TID as of 11/30, to address neuropathic pain. this has not been effective; considering switch to lyrica. elavil 25 mg QHS added 12/02 for insomnia and chronic pain, increased to 50 mg QHS as of 12/03. titrate as tolerated. plan to add SNRI cymbalta for depression and chronic pain 12/04 or 12/05.. appreciate recs of pain mgmt service. [place] [facility] [place] care. Greater than 50% of the session was spent on counseling and/or coordination of care Reason for contiued inpatient stay Substantial Risk for: harm to self and inability to function
[2020-12-03] MEDS: QUEtiapine Fumarate 50 MG TABLET 250 MG PO (21:03)
[2020-12-03] MEDS: Amitriptyline HCl 25 MG TABLET 50 MG PO (21:03)
[2020-12-03] MEDS: traZODone HCL 50 MG TABLET PO (21:05)
[2020-12-03 21:10] VITALS: BP 157/98; PULSE 92; TEMP 36.2; O2SAT 92
--- NOTE | 2020-12-03 23:58 | PC.NURSE ---
patient questioning if elavil is activating him as he reports feeling restless and having trouble falling asleep as well as c/o ringing in his ears
[2020-12-04] MEDS: hydrOXYzine HCL 25 MG TABLET PO ×2 (04:00→21:30)
[2020-12-04] MEDS: Diclofenac Sodium Delayed Rel 75 MG TABLET.DR PO ×2 (09:09→21:30)
[2020-12-04 09:10] VITALS: BP 123/77; PULSE 85; RESP 16; TEMP 36.9; O2SAT 97
[2020-12-04] MEDS: Gabapentin 600 MG TABLET 1200 MG PO ×3 (09:10→21:30)
[2020-12-04] MEDS: Divalproex Sodium ER 500 MG TAB.ER.24H 2000 MG PO (09:10)
[2020-12-04] MEDS: amLODIPine Besylate 10 MG TABLET PO (09:10)
[2020-12-04] MEDS: DULoxetine HCl 30 MG CAPSULE.DR PO (11:23)
--- NOTE | 2020-12-04 13:36 | P.PNPSI_ITS ---
Subjective Subjective Date of Service: 12/04/20 Reason For Visit: Mood lability and SI Interim History: pt reports he felt activated after receiving the increased elavil dose of 50 mg last night. he received a PRN of hydroxyzine and fell asleep after, then awakened again at 0400 and received another PRN of hydroxyzine and again fell back asleep. points out that trazodone DCed last night as well and that we should be hesitant to ascribe all changes in experience last night to elavil. plan made to continue elavil at current dosing and to add hydroxyzine as well at HS. cymbalta also discussed; pt eager to start it, agreed to initiate trial today. pt planning to discharge on wednesday. per staff, attending groups, active and appropriate in milieu. feeling better moodwise - has not had any crying jags for a couple of days. pain worse than ever, however. Mental Status Exam Mental Status Exam Narrative: appropriately dressed and groomed. sleeve tattoos. no PMA/PMR. dental coordinator perative. speech nml in rate, amount, tone, latency, spontaneous. thoughts linear and logical without evidence of delusions or paranoia. affect more flexible, normo-intense, non-labile. no SI/HI/AVH expressed. Diagnostics Vital Signs (24Hr): Vital Signs - 24 hr 12/03/20 21:10 12/04/20 09:10 Temperature 97.1 F 98.5 F Pulse Rate 92 85 Respiratory Rate 16 Blood Pressure 157/98 H 123/77 Pulse Oximetry 92 97 Body Mass Index 27.1 Labs Results: 12/02/20 08:05 12/02/20 08:05 Imaging Radiology Impressions: ITS Impressions Lumbar Spine MRI 11/29/20 17:30 IMPRESSION: - At L2-L3, a shallow right paracentral disc protrusion contacts and likely results in mild mass effect on the traversing L3 nerve roots within the subarticular zones bilaterally. There is also a far right lateral disc protrusion that contacts the extraforaminal right L2 nerve root. - At the L3-L4 junctional level, multifactorial degenerative changes result in moderate to severe central canal stenosis, severe left subarticular zone stenosis with compression of the traversing left L4 nerve root, and moderate to severe bilateral foraminal stenosis with mass effect on the exiting L3 nerve roots bilaterally. - At L4-L5, there are postoperative changes following laminectomy and posterior instrumented lumbar interbody fusion. Osteophytic ridging results in right subarticular zone stenosis with mass effect on the traversing right L5 nerve root. There is enhancing granulation/scar tissue inseparable from the traversing right L5 nerve root as well. - At L5-S1, there are postoperative changes following and posterior instrumented lumbar interbody fusion. Osteophytic ridging and facet arthropathy result in moderate to severe bilateral foraminal stenosis at L5-S1 with mass effect on the exiting L5 nerve roots bilaterally. Medications Medications Current Medications Generic Name Dose Route Start Last Admin Trade Name Freq PRN Reason Stop Dose Admin Acetaminophen 650 mg 11/26/20 23:25 11/30/20 21:58 Acetaminophen 325 Mg Tablet PO 650 mg Q6H PRN Administration Headache/Pain Mild Scale (1-3) Al Hydroxide/Mg Hydroxide 30 ml 11/26/20 23:25 Magnesium Hydrox/Alum Hydrox 30 Ml Oral.Susp PO Q6H PRN Heartburn/Nausea Amitriptyline HCl 50 mg 12/03/20 21:00 12/03/20 21:03 Amitriptyline Hcl 25 Mg Tablet PO 50 mg BEDTIME TIMUR Administration Amlodipine Besylate 10 mg 11/27/20 09:00 12/04/20 09:10 Amlodipine Besylate 10 Mg Tablet PO 10 mg DAILY TIMUR Administration Protocol Diclofenac Sodium 75 mg 11/26/20 21:00 12/04/20 09:09 Diclofenac Sodium Delayed Rel 75 Mg Tablet. PO 75 mg BID TIMUR Administration Divalproex Sodium 2,000 mg 11/28/20 09:00 12/04/20 09:10 Divalproex Sodium Er 500 Mg Tab.Er.24h PO 2,000 mg DAILY TIMUR Administration Duloxetine HCl 30 mg 12/04/20 11:00 12/04/20 11:23 Duloxetine Hcl 30 Mg Capsule. PO 30 mg DAILY TIMUR Administration Gabapentin 1,200 mg 11/29/20 15:00 12/04/20 09:10 Gabapentin 600 Mg Tablet PO 1,200 mg TID TIMUR Administration Hydroxyzine HCl 25 mg 12/04/20 10:01 Hydroxyzine Hcl 25 Mg Tablet PO Q4H PRN Anxiety Hydroxyzine HCl 25 mg 12/04/20 21:00 Hydroxyzine Hcl 25 Mg Tablet PO BEDTIME TIMUR Lidocaine 1 patch 11/28/20 14:22 Lidocaine 4 % Patch Adh..Patch TRANSDERMA DAILY PRN pain Protocol Magnesium Hydroxide 30 ml 11/26/20 23:25 11/28/20 21:14 Milk Of Magnesia 30 Ml Oral.Susp PO 30 ml DAILY PRN Administration Constipation Nicotine Polacrilex 2 mg 11/27/20 17:15 12/03/20 11:14 Nicotine Polacrilex 2 Mg Gum BUCCAL 2 mg Q2H PRN Administration Nicotine Cravings Quetiapine Fumarate 250 mg 11/30/20 21:00 12/03/20 21:03 Quetiapine Fumarate 50 Mg Tablet PO 250 mg BEDTIME TIMUR Administration Allergies Allergies Allergy/AdvReac Type Severity Reaction Status Date / Time meperidine [From DEMEROL] Allergy Mild UNKNOWN Verified 11/26/20 17:12 Assessment & Plan Assessment & Plan (1) Bipolar 1 disorder, mixed, mild: Status: Acute Code(s): F31.61 - Bipolar disorder, current episode mixed, mild Assessment and Plan: increased VPA from 1500 mg daily to 2000 mg daily as of 11/27 to address mood lability. VPA level curiously low at 28 on 2000 mg VPA daily when it had been 68 on 1500 mg 6 days earlier. T/C swapping for tegretol as it may help pain as well as mood. increased gabapentin from 800 TID to 1000 TID as of 11/28, on to 1200 TID as of 11/30, to address neuropathic pain. this has not been effective; considering switch to lyrica. elavil 25 mg QHS added 12/02 for insomnia and chronic pain, increased to 50 mg QHS as of 12/03. titrate as tolerated. added SNRI cymbalta for depression and chronic pain 12/04. appreciate recs of pain mgmt service. pt likely to [place] with [facility] [place] for ongoing care. planning to discharge 12/06. Greater than 50% of the session was spent on counseling and/or coordination of care Reason for contiued inpatient stay Substantial Risk for: harm to self, inability to function and rapid decompensation
[2020-12-04] MEDS: Lidocaine 4 % Patch ADH..PATCH 1 PATCH TRANSDERMA (15:17)
[2020-12-04] MEDS: Amitriptyline HCl 25 MG TABLET 50 MG PO (21:29)
[2020-12-04] MEDS: QUEtiapine Fumarate 50 MG TABLET 250 MG PO (21:29)
[2020-12-04 21:31] VITALS: BP 138/93; PULSE 95; TEMP 36.9; O2SAT 96
[2020-12-05] MEDS: hydrOXYzine HCL 25 MG TABLET PO (02:27)
[2020-12-05 07:29] LABS: MANUAL DIFF FLAG NO
[2020-12-05 07:32] LABS: Basophils Percent Auto 0.5 % (0-2); Eosinophils Absolute Auto 0.2 X10*3/uL (0.0-0.4); Eosinophils Percent Auto 4.3 % (0-4); Hematocrit 46.9 % (42-52); Hemoglobin 15.5 g/dl (14.0-18.0); Imm Gran Abs Auto 0.01 X10*3/uL (0.00-0.03); Imm Gran Pct Auto 0.2 % (0.0-0.4); Lymphocytes Absolute Auto 1.8 X10*3/uL (1.2-4.9); Lymphocytes Percent Auto 31.6 % (20-40); Mean Corpuscular Hemoglobin 28.6 pg (27.0-33.0); Mean Corpuscular Volume 86.5 fL (80-98); Mean Platelet Volume 9.5 fL (9.4-12.4); Monocytes Absolute Auto 0.5 X10*3/uL (0.1-1.2); Monocytes Percent Auto 9.6 % (2-11); Neutrophils Percent Auto 53.8 % (45-73); Platelet Count 217 X10*3/uL (160-400); Red Blood Count 5.42 X10*6/uL (4.60-5.80); Red Cell Distribution Width 13.3 % (11.0-16.0); White Blood Count 5.5 X10*3/uL (4.8-10.8)
[2020-12-05 07:56] LABS: Alanine Aminotransferase 34 U/L (0-40); Albumin Level 3.9 g/dL (3.5-5.0); Alkaline Phosphatase 56 U/L (39-117); Anion Gap 13 (12-20); Aspartate Amino Transferase 16 U/L (5-37); Bilirubin Direct 0.2 mg/dL (0.0-0.5); Bilirubin Total 0.5 mg/dL (0.0-1.0); Blood Urea Nitrogen 19 mg/dL (9-16); Calcium 9.3 mg/dL (8.4-10.2); Carbon Dioxide 26 mmol/L (22-29); Chloride 105 mmol/L (96-108); Creatinine Clr Calc Pharmacy 95.2; Estimated Glomerular Filt Rate > 60; Glucose Random 88 mg/dL (60-115); Potassium 4.6 mmol/L (3.3-5.1); Sodium 139 mmol/L (135-145); Total Protein 6.1 g/dL (6.5-8.0)
[2020-12-05 08:02] LABS: Valproate 47.6 mcg/mL (50.0-100.0)
[2020-12-05 09:00] VITALS: BP 119/74; PULSE 76; RESP 16; TEMP 36.4; O2SAT 97
[2020-12-05 09:22] VITALS: BP 119/74; PULSE 76
[2020-12-05] MEDS: Gabapentin 600 MG TABLET 1200 MG PO ×3 (09:22→21:13)
[2020-12-05] MEDS: amLODIPine Besylate 10 MG TABLET PO (09:22)
[2020-12-05] MEDS: DULoxetine HCl 30 MG CAPSULE.DR PO (09:22)
[2020-12-05] MEDS: Diclofenac Sodium Delayed Rel 75 MG TABLET.DR PO ×2 (09:23→21:14)
[2020-12-05] MEDS: Divalproex Sodium ER 500 MG TAB.ER.24H 2000 MG PO (09:23)
[2020-12-05] MEDS: Nicotine Polacrilex 2 MG GUM BUCCAL (14:08)
--- NOTE | 2020-12-05 15:34 | P.DS_ITS ---
DS: Providers Provider Date of Service: 12/05/20 Date of admission: 11/26/20 22:05 Primary care physician: Jacob Rizzo MD Consults: 11/28/20 14:24 Consult to Pain Management Routine Consulting Provider: [facility] Pain Management Reason for consultation: lower back pain refractory to surgical correction x3, debilitating Has provider been notified: No DS: Diagnosis Discharge Diagnosis (1) Bipolar 1 disorder, mixed, mild: Status: Acute DS: Medications Discharge Medications Home Medications: Home Medications Medication Instructions Recorded Confirmed amlodipine 10 mg tablet 1 tab PO DAILY 11/26/20 11/26/20 diclofenac sodium 75 mg 1 tab PO BID 11/26/20 11/26/20 tablet,delayed release lorazepam 1 mg tablet 1 tab PO BID 11/26/20 11/26/20 Previous Rx's Medication Instructions Recorded amitriptyline 25 mg tablet 50 mg PO BEDTIME 30 Days #60 tab 12/05/20 divalproex 500 mg tablet,extended 2,000 mg PO DAILY 30 Days #120 tab 12/05/20 release 24 hr duloxetine 30 mg capsule,delayed 30 mg PO DAILY 30 Days #30 cap 12/05/20 release gabapentin 600 mg tablet 1,200 mg PO TID 30 Days #180 tab 12/05/20 hydroxyzine HCl 25 mg tablet 50 mg PO BEDTIME 30 Days #60 tab 12/05/20 hydroxyzine HCl 50 mg tablet 50 mg PO BEDTIME 30 Days #30 tab 12/05/20 quetiapine 50 mg tablet 250 mg PO BEDTIME 30 Days #150 tab 12/05/20 Mental Status Exam Mental Status Exam Narrative: appropriately dressed and groomed. sleeve tattoos. no PMA/PMR. cooperative. speech nml in rate, amount, tone, latency, spontaneous. thoughts linear and logical without evidence of delusions or paranoia. affect more flexible, normo-intense, non-labile. mood euthymic. no SI/HI/AVH. Data Data Completed and Pending Completed studies during hospitalization [Text1]: 12/02/20 12/02/20 12/05/20 08:05 08:05 07:15 WBC 4.9 5.5 RBC 5.36 5.42 Hgb 15.5 15.5 Hct 46.3 46.9 MCV 86.4 86.5 MCH 28.9 28.6 MCHC 33.5 33.0 RDW 13.6 13.3 Plt Count 224 217 MPV 9.2 L 9.5 Immature Gran % (Auto) 0.2 0.2 Neut % (Auto) 45.6 53.8 Lymph % (Auto) 35.5 31.6 [place] % (Auto) 11.7 H 9.6 Eos % (Auto) 6.0 H 4.3 H Baso % (Auto) 1.0 0.5 Lymph # (Auto) 1.7 1.8 [place] # (Auto) 0.6 0.5 Eos # (Auto) 0.3 0.2 Baso # (Auto) 0.1 0.0 Abs Immat Gran (auto) 0.01 0.01 Absolute Neuts (auto) 2.2 3.0 Absolute Nucleated RBC 0.000 0.000 Nucleated RBC % (auto) 0.0 0.0 Sodium 142 Potassium 4.5 Chloride 109 H Carbon Dioxide 25 Anion Gap 13 BUN 17 H Creatinine 0.87 Estim Creat Clear Calc 112.7 Estimated GFR > 60 Random Glucose 96 Calcium 9.0 D Total Bilirubin 0.3 Direct Bilirubin 0.2 AST 17 ALT 35 Alkaline Phosphatase 54 D Total Protein 6.2 L Albumin 3.9 Valproic Acid 28.1 L 12/05/20 07:15 WBC RBC Hgb Hct MCV MCH MCHC RDW Plt Count MPV Immature Gran % (Auto) Neut % (Auto) Lymph % (Auto) [place] % (Auto) Eos % (Auto) Baso % (Auto) Lymph # (Auto) [place] # (Auto) Eos # (Auto) Baso # (Auto) Abs Immat Gran (auto) Absolute Neuts (auto) Absolute Nucleated RBC Nucleated RBC % (auto) Sodium 139 Potassium 4.6 Chloride 105 Carbon Dioxide 26 Anion Gap 13 BUN 19 H Creatinine 1.03 Estim Creat Clear Calc 95.2 Estimated GFR > 60 Random Glucose 88 Calcium 9.3 Total Bilirubin 0.5 Direct Bilirubin 0.2 AST 16 ALT 34 Alkaline Phosphatase 56 Total Protein 6.1 L Albumin 3.9 Valproic Acid 47.6 L Imaging Diagnostic Imaging Impressions Lumbar Spine MRI 11/29/20 17:30 IMPRESSION: - At L2-L3, a shallow right paracentral disc protrusion contacts and likely results in mild mass effect on the traversing L3 nerve roots within the subarticular zones bilaterally. There is also a far right lateral disc protrusion that contacts the extraforaminal right L2 nerve root. - At the L3-L4 junctional level, multifactorial degenerative changes result in moderate to severe central canal stenosis, severe left subarticular zone stenosis with compression of the traversing left L4 nerve root, and moderate to severe bilateral foraminal stenosis with mass effect on the exiting L3 nerve roots bilaterally. - At L4-L5, there are postoperative changes following laminectomy and posterior instrumented lumbar interbody fusion. Osteophytic ridging results in right subarticular zone stenosis with mass effect on the traversing right L5 nerve root. There is enhancing granulation/scar tissue inseparable from the traversing right L5 nerve root as well. - At L5-S1, there are postoperative changes following and posterior instrumented lumbar interbody fusion. Osteophytic ridging and facet arthropathy result in moderate to severe bilateral foraminal stenosis at L5-S1 with mass effect on the exiting L5 nerve roots bilaterally. DS: Summary Hospital Course Hospital Course: ruth Perdomo MD 11/27 H&P: pt with several work-related injuries to the back with multiple failed surgical fixes and associated chronic pain, plus bipolar I disorder, presents with unstable mood, dysphoria, and SI.? he has been on disability since last year for his back injuries and stable on his current medications regimen for the past decade or more.? he has recently begun to experience rapid mood swings, bouts of crying, insomnia, somatic disturbances, and negative mood states.? he has been feeling off for several months but the past two weeks have been severe.? he has a h/o suicide attempts and decided to seek help before it got to that point. Past Psychiatric History: h/o bipolar disorder. h/o 3 prior psych hosps. h/o 2 suicide attempt both by overdose (one lithium) more than 10 years ago. has been in outpt Tx since then. ruth Perdomo MD 11/28 Progress Note: pt found resting in bed, easily rousable.? reports no substantial change in Sx from yesterday.? a few bouts of nearly crying, but nothing out of control and no somatic symptoms associated with severe mood disturbance.? agreeable to continue with current medications.? reports his will be bringing in his TENS unit.? amenable to considering tegretol over VPA for neuropathic pain treatment properties in addition to mood stabilization.? also T/C TCA or SNRI.? informed pt MD will look into neuro or pain consult.? also willing to try lidocaine patch to lower back.? no other complaints or requests. per Conor BLOUNT 11/29 Progress Note: pt found sleeping in bed, easily rousable.? reports no substantial change in Sx from yesterday.? a few bouts of nearly crying, but nothing out of control and no somatic symptoms associated with severe mood disturbance.? reports he awakened today with 8/10 pain; not improved at all.? agreeable to increase gabapentin to max dose today, 1200 mg TID, to see if it makes a difference.? discussed consult to pain mgmt service and their recommendation for MRI to see if there is anything they can intervene on during the brief stay.? pt reports his implants are titanium and his implanted device has an MRI mode, so he can get the MRI.? agreeable to continue the new VPA dose through wednesday for levels and to assess clinical efficacy. per Conor BLOUNT 12/02 Progress Note: ?Pt reports feeling tired, overwhelmed with pain and poor sleep. He reports depressed mood but denies suicidal thoughts today.? labile mood with crying jags continues.? that his mood and periods of crying are normal reactions to his medical predicament is discussed, and that there does not appear to be any other symptom of kameron present.? the conclusion is that he is not experiencing a mixed manic episode, but rather is depressed due to his pain and genetic predisposition to depression.? in that case, changing his depakote dosing would not be expected to be helpful.? focusing more on treatments for his mood and pain, and also insomnia, would seem more warranted.? MD generates ideas for TCAs as sleep aids (sleep + neuropathic pain), SNRI (cymbalta) for depression/anxiety and neuropathic pain, and lyrica rather than gabapentin.? also T/C tegretol instead of VPA.? pt is open to the changes and agrees to any and all.? will proced with TCA tonight for sleep and pain. per Conor BLOUNT 12/03 Progress Note: pt reports no change in mood or pain.? may have slept a bit better last night.? agreeable to increase elavil again and to start duloxetine.? also discussed possibilities of cross taper of VPA onto tegretol and gabapentin onto lyrica; more likely to accomplish those changes outpt if they are indeed pursued.? will increase elavil tonight, taper off of trazodone.? considering steroid injection tomorrow versus after discharge from the hospital.? was up at 0400 thios morning, got a PRN, fell back asleep.? per staff, pt continues with 8/10 pain, slight increase in anxiety and depression (but without SI).? seen by pain mgmt yesterday. per Conor BLOUNT 12/04 Progress Note: pt reports he felt activated after receiving the increased elavil dose of 50 mg last night.? he received a PRN of hydroxyzine and fell asleep after, then awakened again at 0400 and received another PRN of hydroxyzine and again fell back asleep.? points out that trazodone DCed last night as well and that we should be hesitant to ascribe all changes in experience last night to elavil.? plan made to continue elavil at current dosing and to add hydroxyzine as well at HS.? cymbalta also discussed; pt eager to start it, agreed to initiate trial today.? pt planning to discharge on wednesday.? per staff, attending groups, active and appropriate in milieu.? feeling better moodwise - has not had any crying jags for a couple of days.? pain worse than ever, however. 12/05: safe, desiring discharge. meds reviewed, reconciled, and prescribed. no notable events or behaviors overnight. Precis: increased VPA from 1500 mg daily to 2000 mg daily? as of 11/27 to address mood lability.? VPA level curiously low at 28 on 2000 mg VPA daily when it had been 68 on 1500 mg 6 days earlier.? T/C swapping for tegretol as it may help pain as well as mood. increased gabapentin from 800 TID to 1000 TID as of 11/28, on to 1200 TID as of 11/30, to address neuropathic pain.? this has not been effective; considering switch to lyrica. elavil 25 mg QHS added 12/02 for insomnia and chronic pain, increased to 50 mg QHS as of 12/03.? titrate as tolerated. added SNRI cymbalta for depression and chronic pain 12/04. appreciate recs of pain mgmt service.? pt likely to F/U with [facility] pain mgmt outpt clinic for ongoing care. discharged 12/06. Time Spent with Patient Time attestation: Total time spent providing and/or coordinating discharge services: Discharge Plan Discharge Patient Disposition: Home, Self-Care Discharge Diagnosis: Bipolar I Disorder, MRE Mixed, Mild Referrals: Dr. Vazquez (psychiatry) [Other] - 12/26/20 12:30 pm (Telehealth Appointment) Bret Finnegan (Therapy) [Other] - 12/09/20 11:05 am (Telehealth Appointment) Jacob Rizzo MD [Primary Care Provider] - 1 Week Discharge Medications: New divalproex 500 mg Tablet Extended Release 24 Hr 2,000 mg PO DAILY 30 Days Qty: 120 RF: 0 quetiapine 50 mg Tablet 250 mg PO BEDTIME 30 Days Qty: 150 RF: 0 amitriptyline 25 mg Tablet 50 mg PO BEDTIME 30 Days Qty: 60 RF: 0 duloxetine 30 mg Capsule,Delayed Release(Dr/Ec) 30 mg PO DAILY 30 Days Qty: 30 RF: 0 gabapentin 600 mg Tablet 1,200 mg PO TID 30 Days Qty: 180 RF: 0 hydroxyzine HCl 25 mg Tablet 50 mg PO BEDTIME 30 Days Qty: 60 RF: 0 hydroxyzine HCl 50 mg tablet 50 mg PO BEDTIME 30 Days Qty: 30 RF: 0 Continued amlodipine 10 mg tablet 1 tab PO DAILY RF: 0 diclofenac sodium 75 mg tablet,delayed release (DR/EC) 1 tab PO BID RF: 0 lorazepam 1 mg tablet 1 tab PO BID RF: 0 Discontinued quetiapine 100 mg tablet 2 tab PO BEDTIME RF: 0 gabapentin 800 mg tablet 1 tab PO TID RF: 0 divalproex 500 mg tablet extended release 24 hr 3 tab PO DAILY RF: 0 Discharge Orders: Discharge Order (Routine); Ordered 12/06/20 Ordered By: Drew Perdomo Diet: advance to usual diet Activity on Discharge: As tolerated Stand Alone Forms: Patient Portal Discharge page Care Plan Goals: remain independent in the community with outpatient level of care Health Concerns: chronic pain Plan of Treatment: continue to take medications as prescribed and to attend appointments as scheduled. follow up with pain clinic. Assessment: not a threat of imminent harm to self or others Discharge Date/Time: 12/06/20 11:35
[2020-12-05 19:19] VITALS: BP 121/78; PULSE 84; RESP 16; TEMP 36.9; O2SAT 99
[2020-12-05] MEDS: Acetaminophen 325 MG TABLET 650 MG PO (20:02)
[2020-12-05 20:10] VITALS: BP 158/101; PULSE 80; TEMP 36.7; O2SAT 96
[2020-12-05] MEDS: Amitriptyline HCl 25 MG TABLET 50 MG PO (21:14)
[2020-12-05] MEDS: hydrOXYzine HCL 25 MG TABLET 50 MG PO (21:14)
[2020-12-05] MEDS: QUEtiapine Fumarate 50 MG TABLET 250 MG PO (21:14)
[2020-12-06] MEDS: hydrOXYzine HCL 25 MG TABLET 50 MG PO (05:10)
[2020-12-06 05:19] VITALS: BP 126/97; PULSE 87
[2020-12-06] MEDS: Diclofenac Sodium Delayed Rel 75 MG TABLET.DR PO (08:46)
[2020-12-06] MEDS: DULoxetine HCl 30 MG CAPSULE.DR PO (08:46)
[2020-12-06] MEDS: Divalproex Sodium ER 500 MG TAB.ER.24H 2000 MG PO (08:46)
[2020-12-06] MEDS: Gabapentin 600 MG TABLET 1200 MG PO (08:46)
[2020-12-06] MEDS: amLODIPine Besylate 10 MG TABLET PO (08:46)
== END 2020-12-06 11:35 | disposition home or self-care (01) | DRG 753 ==
LOC: HO.ED 21:20 → HO.PADLT16 22:19
PROVIDERS: Physician Assistant; Admitting Provider Psychiatry & Neurology Psychiatry; Emergency Provider Internal Medicine; PCP Pediatrics; Visit Provider Psychiatry & Neurology Psychiatry
DX: F31.61 Bipolar disorder, current episode mixed, mild (principal); R45.851 Suicidal ideations; Z96.82 Presence of neurostimulator; M54.9 Dorsalgia, unspecified; G89.29 Other chronic pain; Z91.5 Personal history of self-harm; Z20.822 Contact with and (suspected) exposure to COVID-19; Z79.899 Other long term (current) drug therapy
CPT/HCPCS: 36415; 72158; 80048; 80076; 80164; 80307; 81001; 81003; 82077; 83735; 85025; 87635; 93005; 99285